=== PATIENT | female | born 1930 | race Caucasian/White ===

== ENCOUNTER 2017-01-05 08:47 | Inpatient (IN) | payer MEDICARE, OTHER ==
--- NOTE | 2017-01-05 09:00 | EDM.PDOC ---
ED HPI GENERAL MEDICAL PROBLEM - General Chief Complaint: Neuro Symptoms/Deficits Stated Complaint: [facility] Time Seen by Provider: 01/05/17 08:50 Source of Information: Reports: Patient, EMS, Correction Records History Limitations: Reports: No Limitations - History of Present Illness INITIAL COMMENTS - FREE TEXT/NARRATIVE: 86-year-old female presents to the ED with the apparently acute right-sided weakness and trouble speaking while she was seated at the dining room table. Noted to have difficulties feeding herself and she spilled her coffee and her juice. Last known well time is estimated at 0800 hrs. She just completed eating breakfast. Sugar on scene was 191 according to paramedics. Symptoms lasted between 5 and 6 minutes and then dissipated. She was having trouble with her speech expressive aphasia and right arm was weak and could not move it hardly. You're noticing about her leg as she was seated at the time and remain seating seated at the dining room table. She denies headache, nausea or vomiting no. There is no visual acuity changes. She feels pretty well back to normal. Denies any recent changes to her medications. Her blood pressure is normal at 143/72. NIH stroke scale was 9 out of 24. Decision made to proceed with TPA. Her total weight is 64 kg. She will therefore repeat receive a total dose of 58 mg of TPA with 6 mg given IV bolus and 52 mg over the next hour. Onset: Today Onset Date: 01/05/17 Onset Time: 08:20 Duration: Minutes: Location: Reports: Upper Extremity, Right Quality: Denies: Same as Previous Episode, Sharp, Stabbing, Throbbing Severity: Moderate Improves with: Reports: Other (It has resolved prior to coming to the ED.) Worsens with: Reports: None Context: Reports: Other (Had just finished eating her breakfast.). 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: Reports: Other (see below) (None.) - Related Data Allergies Allergy/AdvReac Type Severity Reaction Status Date / Time No Known Allergies Allergy Verified 01/05/17 17:17 Home Meds: Home Meds Budesonide/Formoterol [Symbicort 160-4.5 Mcg Inhaler] 2 puff IH BID 01/08/14 [ History] Lisinopril 10 mg PO DAILY #30 tablet 01/08/14 [Rx] Albuterol/Ipratropium [DuoNeb 3-0.5 MG/3 ML] 3 ml INH Q6H 07/24/14 [History] Latanoprost [Xalatan 0.005% Ophth Soln] 1 drop EYEBOTH BEDTIME 07/24/14 [History ] Montelukast Sodium [Singulair] 1 tab PO BEDTIME 07/24/14 [History] Multivitamin with Minerals [Multivitamins with Minerals] 1 tab PO DAILY [History] Multivitamins/Min/FA/Lut/Zeax [ICaps MV] 1 tab PO DAILY 07/24/14 [History] Levothyroxine [Synthroid] 88 mcg PO ACBREAKFAST 01/05/17 [History] Past Medical History HEENT History: Reports: Impaired Vision Cardiovascular History: Reports: Hypertension Respiratory History: Reports: Asthma - Past Surgical History GI Surgical History: Reports: Appendectomy Female Surgical History: Reports: Hysterectomy Social & Family History - Tobacco Use Smoking Status *Q: Never Smoker Second Hand Smoke Exposure: No - Alcohol Use Days Per Week of Alcohol Use: 0 - Recreational Drug Use Recreational Drug Use: No - Living Situation & Occupation Living situation: Reports: Occupation: Retired Social History Comment: Resides at [facility]. ED ROS GENERAL - Review of Systems Review Of Systems: See Below Constitutional: Denies: Fever, Chills, Malaise, Weakness, Fatigue, Decreased Appetite, Weight Loss HEENT: Reports: No Symptoms, Glasses Respiratory: Reports: No Symptoms Cardiovascular: Reports: No Symptoms, Blood Pressure Problem. Denies: Claudication, Dyspnea on Exertion, Edema, Lightheadedness (Well-controlled with medication), Orthopnea Endocrine: Reports: No Symptoms GI/Abdominal: Reports: No Symptoms : Reports: Incontinence Musculoskeletal: Reports: Back Pain (Mild stress and urge components.), Joint Pain Skin: Reports: No Symptoms (Knees hips shoulders and neck at times.) Neurological: Reports: No Symptoms Psychiatric: Reports: No Symptoms Hematologic/Lymphatic: Reports: No Symptoms Immunologic: Reports: No Symptoms ED EXAM, NEURO - Physical Exam Exam: See Below Exam Limited By: No Limitations General Appearance: Alert, WD/WN, Anxious, Mild Distress Eye Exam: Bilateral Eye: Normal Inspection, PERRL Throat/Mouth: Normal Inspection, Normal Lips, Normal Teeth, Normal Oropharynx, Other Head Exam: Atraumatic, Normocephalic (Uvula is in the midline) Neck: Normal Inspection, Supple, Non-Tender, Full Range of Motion, Carotid Bruit (Think carotid bruit present on the left side.). No: Lymphadenopathy (L) , Lymphadenopathy (R) Respiratory/Chest: No Respiratory Distress, Lungs Clear, Normal Breath Sounds, No Accessory Muscle Use Cardiovascular: Normal Peripheral Pulses, Regular Rate, Rhythm, No Edema, No Gallop, No Murmur GI/Abdominal: Normal Bowel Sounds, Soft, Non-Tender, No Organomegaly, No Distention, No Abnormal Bruit, No Mass Neurological: Alert, Normal Mood/Affect, Normal Dorsiflexion, CN II-XII Intact, Normal Plantar Flexion, Normal Reflexes, Oriented x 3, Abnormal Gait (With regard up to walk he could tell that the right leg was significantly weaker than the left and she had trouble walking without 1% age.), Other (Normal finger to nose no pronator drift.). No: Babinski DTR: 0: Achilles (R), Achilles (L), 2+: Patella (R), Patella (L), 3+: Bicep (R) , Bicep (L) Back Exam: Normal Inspection, Full Range of Motion, Other Extremities: Normal Inspection, Normal Range of Motion, Non-Tender, No Pedal Edema, Normal Capillary Refill (Mild kyphosis thoracic spine) Psychiatric: Normal Affect, Normal Mood Skin Exam: Warm, Dry, Intact, Normal Color, No Rash EKG INTERPRETATION EKG Date: 01/05/17 Time: 08:55 Rhythm: NSR Rate (Beats/Min): 79 [place]: Normal P-Wave: Present QRS: Other ST-T: Normal QT: Prolonged (Mildly prolonged) EKG Interpretation Comments: Essentially essentially normal ECG Course - Vital Signs Last Recorded V/S: Last Vital Signs Temp 36.6 C 01/05/17 18:00 Pulse 94 01/05/17 19:00 Resp 20 01/05/17 19:00 BP 146/67 H 01/05/17 19:00 Pulse Ox 94 L 01/05/17 19:00 - Orders/Labs/Meds Orders: Active Orders 24 hr Category Date Time Status Sodium Chloride 0.9% [Normal Saline] 1,000 ml Med 01/05/17 09:00 Active IV ASDIRECTED Medication Orders Acetaminophen (Tylenol) 650 mg PO Q4H PRN PRN Reason: Pain (Mild 1-3)/fever Hydrocodone Bitart/Acetaminophen ([place] 325-5 Mg) 1 tab PO Q4H PRN PRN Reason: Pain (moderate 4-6) Albuterol/Ipratropium (Duoneb 3.0-0.5 Mg/3 Ml) 3 ml NEB Q4H PRN PRN Reason: Shortness Of Breath/wheezing Albuterol/Ipratropium (Duoneb 3.0-0.5 Mg/3 Ml) 3 ml INH Q6HRRT CLEVE Bisacodyl (Dulcolax) 5 mg PO DAILY PRN PRN Reason: Constipation Budesonide/Formoterol Fumarate (Symbicort 160-4.5 Mcg) 0 gm INH BID CLEVE Docusate Sodium (Colace) 100 mg PO BID PRN PRN Reason: Constipation Hydromorphone HCl (Dilaudid) 0.25 mg IVPUSH Q2H PRN PRN Reason: Pain (severe 7-10) Sodium Chloride (Normal Saline) 1,000 mls @ 75 mls/hr IV ASDIRECTED CLEVE Last Admin: 01/05/17 09:20 Dose: 75 mls/hr Promethazine HCl 12.5 mg/ (Sodium Chloride) 50.5 mls @ 100 mls/hr IV Q6H PRN PRN Reason: Nausea/Vomiting Latanoprost (Xalatan 0.005% Ophth Soln) 0 ml EYEBOTH BEDTIME [facility] Levothyroxine Sodium (Synthroid) 88 mcg PO ACBREAKFAST CLEVE Lisinopril (Prinivil) 10 mg PO DAILY CLEVE Lorazepam (Ativan) 0.25 mg IV Q6H PRN PRN Reason: Anxiety Montelukast Sodium (Singulair) 10 mg PO BEDTIME CLEVE Ondansetron HCl (Zofran) 4 mg IV Q6H PRN PRN Reason: Nausea/Vomiting Senna/Docusate Sodium (Senna Plus) 1 tab PO BID PRN PRN Reason: Constipation Sodium Chloride (Saline Flush) 10 ml FLUSH ONETIME PRN PRN Reason: IV FLUSH Last Admin: 01/05/17 13:07 Dose: 10 ml Temazepam (Restoril) 7.5 mg PO BEDTIME PRN PRN Reason: Sleep Labs: Laboratory Tests 01/05/17 01/05/17 01/05/17 Range/Units 09:29 09:29 09:29 WBC 7.68 (3.98-10.04) K/mm3 RBC 4.24 (3.98-5.22) M/mm3 Hgb 13.4 (11.2-15.7) gm/L Hct 40.5 (34.1-44.9) % MCV 95.5 H (79.4-94.8) fl MCH 31.6 (25.6-32.2) pg MCHC 33.1 (32.2-35.5) g/dl RDW Std Deviation 45.8 (36.4-46.3) fL Plt Count 299 (182-369) K/mm3 MPV 11.2 (9.4-12.3) fl Neutrophils % (Manual) 60 (40-60) % Band Neutrophils % 0 (0-10) % Lymphocytes % (Manual) 36 (20-40) % Atypical Lymphs % 0 % Monocytes % (Manual) 1 L (2-10) % Eosinophils % (Manual) 3 (0.7-5.8) % Basophils % (Manual) 0 L (0.1-1.2) Platelet Estimate Adequate RBC Morph Comment Normal PT 10.5 (8.0-13.0) SECONDS INR 0.97 APTT (22-36) SECONDS Sodium 143 (136-145) mEq/L Potassium 4.2 (3.5-5.1) mEq/L Chloride 106 (98-107) mEq/L Carbon Dioxide 31 (21-32) mEq/L Anion Gap 10.2 (5-15) BUN 17 (7-18) mg/dL Creatinine 0.9 (0.55-1.02) mg/dL Est Cr Clr Drug Dosing 41.12 mL/min Estimated GFR (MDRD) 60 (>60) mL/min BUN/Creatinine Ratio 18.9 H (14-18) Glucose 121 H (83-115) mg/dL Calcium 9.3 (8.5-10.1) mg/dL Total Bilirubin 0.4 (0.2-1.0) mg/dL AST 21 (15-37) U/L ALT 23 (14-59) U/L Alkaline Phosphatase 64 (46-116) U/L Troponin I < 0.017 (0.00-0.056) ng/mL B-Natriuretic Peptide (0-100) pg/mL Total Protein 7.6 (6.4-8.2) g/dl Albumin 3.7 (3.4-5.0) g/dl Globulin 3.9 gm/dL Albumin/Globulin Ratio 1.0 (1-2) Urine Color (Yellow) Urine Appearance (Clear) Urine pH (5.0-8.0) Ur Specific [place] (1.005-1.030) Urine Protein (Negative) Urine Glucose (UA) (Negative) Urine Ketones (Negative) Urine Occult Blood (Negative) Urine Nitrite (Negative) Urine Bilirubin (Negative) Urine Urobilinogen (0.2-1.0) Ur Leukocyte Esterase (Negative) Urine RBC (0-5) /hpf Urine WBC (0-5) /hpf Ur Epithelial Cells (0-5) /hpf Urine Bacteria (FEW) /hpf Urine Mucus (FEW) /hpf 01/05/17 01/05/17 01/05/17 Range/Units 09:29 09:45 12:14 WBC (3.98-10.04) K/mm3 RBC (3.98-5.22) M/mm3 Hgb (11.2-15.7) gm/L Hct (34.1-44.9) % MCV (79.4-94.8) fl MCH (25.6-32.2) pg MCHC (32.2-35.5) g/dl RDW Std Deviation (36.4-46.3) fL Plt Count (182-369) K/mm3 MPV (9.4-12.3) fl Neutrophils % (Manual) (40-60) % Band Neutrophils % (0-10) % Lymphocytes % (Manual) (20-40) % Atypical Lymphs % % Monocytes % (Manual) (2-10) % Eosinophils % (Manual) (0.7-5.8) % Basophils % (Manual) (0.1-1.2) Platelet Estimate RBC Morph Comment PT (8.0-13.0) SECONDS INR APTT 22 (22-36) SECONDS Sodium (136-145) mEq/L Potassium (3.5-5.1) mEq/L Chloride (98-107) mEq/L Carbon Dioxide (21-32) mEq/L Anion Gap (5-15) BUN (7-18) mg/dL Creatinine (0.55-1.02) mg/dL Est Cr Clr Drug Dosing mL/min Estimated GFR (MDRD) (>60) mL/min BUN/Creatinine Ratio (14-18) Glucose (83-115) mg/dL Calcium (8.5-10.1) mg/dL Total Bilirubin (0.2-1.0) mg/dL AST (15-37) U/L ALT (14-59) U/L Alkaline Phosphatase (46-116) U/L Troponin I (0.00-0.056) ng/mL B-Natriuretic Peptide 144 H (0-100) pg/mL Total Protein (6.4-8.2) g/dl Albumin (3.4-5.0) g/dl Globulin gm/dL Albumin/Globulin Ratio (1-2) Urine Color Yellow (Yellow) Urine Appearance Clear (Clear) Urine pH 8.5 H (5.0-8.0) Ur Specific [place] 1.020 (1.005-1.030) Urine Protein Negative (Negative) Urine Glucose (UA) Negative (Negative) Urine Ketones Negative (Negative) Urine Occult Blood Negative (Negative) Urine Nitrite Negative (Negative) Urine Bilirubin Negative (Negative) Urine Urobilinogen 0.2 (0.2-1.0) Ur Leukocyte Esterase Negative (Negative) Urine RBC 0-5 (0-5) /hpf Urine WBC 0-5 (0-5) /hpf Ur Epithelial Cells 0-5 (0-5) /hpf Urine Bacteria Not seen (FEW) /hpf Urine Mucus Not seen (FEW) /hpf Meds: Medications Generic Name Dose Route Start Last Admin Trade Name Freq PRN Reason Stop Dose Admin Acetaminophen 650 mg 01/05/17 13:03 Tylenol PO Q4H PRN Pain (Mild 1-3)/fever Hydrocodone Bitart/Acetaminophen 1 tab 01/05/17 13:03 [place] 325-5 Mg PO Q4H PRN Pain (moderate 4-6) Albuterol/Ipratropium 3 ml 01/05/17 13:03 Duoneb 3.0-0.5 Mg/3 Ml NEB Q4H PRN Shortness Of Breath/wheezing Albuterol/Ipratropium 3 ml 01/05/17 21:00 Duoneb 3.0-0.5 Mg/3 Ml INH Q6HRRT CLEVE Bisacodyl 5 mg 01/05/17 13:03 Dulcolax PO DAILY PRN Constipation Budesonide/Formoterol Fumarate 0 gm 01/05/17 21:00 Symbicort 160-4.5 Mcg INH BID CLEVE Docusate Sodium 100 mg 01/05/17 13:03 Colace PO BID PRN Constipation Hydromorphone HCl 0.25 mg 01/05/17 13:03 Dilaudid IVPUSH Q2H PRN Pain (severe 7-10) Sodium Chloride 1,000 mls @ 75 mls/hr 01/05/17 09:00 01/05/17 09:20 Normal Saline IV 75 mls/hr ASDIRECTED CLEVE Administration Promethazine HCl 12.5 mg/ 50.5 mls @ 100 mls/hr 01/05/17 13:03 Sodium Chloride IV Q6H PRN Nausea/Vomiting Latanoprost 0 ml 01/05/17 21:00 Xalatan 0.005% Ophth Soln EYEBOTH BEDTIME CLEVE Levothyroxine Sodium 88 mcg 01/06/17 06:00 Synthroid PO ACBREAKFAST CLEVE Lisinopril 10 mg 01/06/17 09:00 Prinivil PO DAILY CLEVE Lorazepam 0.25 mg 01/05/17 13:03 Ativan IV Q6H PRN Anxiety Montelukast Sodium 10 mg 01/05/17 21:00 Singulair PO BEDTIME CLEVE Ondansetron HCl 4 mg 01/05/17 13:03 Zofran IV Q6H PRN Nausea/Vomiting Senna/Docusate Sodium 1 tab 01/05/17 13:03 Senna Plus PO BID PRN Constipation Sodium Chloride 10 ml 01/05/17 12:59 01/05/17 13:07 Saline Flush FLUSH 10 ml ONETIME PRN Administration IV FLUSH Temazepam 7.5 mg 01/05/17 21:00 Restoril PO BEDTIME PRN Sleep Discontinued Medications Generic Name Dose Route Start Last Admin Trade Name Renea PRN Reason Stop Dose Admin Alteplase, Recombinant 52 mg 01/05/17 10:01 01/05/17 10:21 Activase IV 01/05/17 10:02 52 mg .INFUSION ONE Administration Alteplase, Recombinant 6 mg 01/05/17 10:03 01/05/17 09:52 Activase IVPUSH 01/05/17 10:04 5.8 mg .BOLUS ONE Administration Sodium Chloride 100 mls @ 65 mls/hr 01/05/17 13:00 01/05/17 13:06 Normal Saline IV 65 mls/hr ASDIRECTED CLEVE Administration Iopamidol 100 ml 01/05/17 12:59 01/05/17 13:06 Isovue-370 (76%) IVPUSH 01/05/17 13:00 100 ml ONETIME ONE Administration Levothyroxine Sodium 100 mcg 01/06/17 09:00 Synthroid PO DAILY CLEVE Non-Formulary Medication 1 tab 01/05/17 13:09 Cetirizine PO ONCALL PRN Other Non-Formulary Medication 1 spray 01/05/17 21:00 Fluticasone Propionate NASBOTH BID CLEVE - Radiology Interpretation Free Text/Narrative:: 86-year-old female brought to the ED for evaluation of possible stroke. Apparently she was sitting at the breakfast table he just completed breakfast. She developed expressive aphasia from the sounds of things and right arm weakness. The symptoms lasted less than 56 minutes and her symptoms are gone at the time of presentation to the ED. On her bit slow and an inability to do finger to nose assessment as she seemed to be confused about what she is supposed to do. She can do rapid alternating movements with no problem. Heel-to- marcano was okay. Once CT is completed we'll get up walking and see how her gait is. - Re-Assessments/Exams Free Text/Narrative Re-Assessment/Exam: 01/05/17 09:16 CT of the brain is been completed. It shows age-appropriate degenerative changes with dilatation of the lateral ventricles and encephalomalacia of both the anterior and posterior horns. Small vessel ischemic changes present in both basal ganglia. There is an area of calcification in the deep parietal lobe on the left side. There is also 2 areas of calcification within the anterior aspect of the left cerebellar lobe. No acute bleeding is evident no midline shift no signs of mass effect. 01/05/17 09:40 With her son here it is quite apparent that she is exhibiting more problems with expressive aphasia. Also consultation with the nurse staff over at [facility] indicates that she was having trouble feeding herself this morning at 8:00 with knocking over her juice and spilling her coffee indicating right-sided weakness. To the table however without any difficulty. Far as we can ascertain her symptoms started around 0800 hrs this morning. Decision made to pursue TPA treatment. She is estimated to be 64 kg. She will therefore received a total dose of 58 mg of TPA with 5.8 mg given as initially and that the other 6 mg to be given initially and the other is 52 mg to follow IV infusion. She has no contraindications to TPA treatment at this time. 01/05/17 10:19 patient's symptoms seem to be much improved. Her speech pattern is now normal without an expressive aphasia I could find no weakness in her right hand as compared to the left. Chest x-ray reveals mild cardiomegaly and perhaps mild diffuse vascular congestion which may be due to magnification from portable technique. I will order a BNP. 01/05/17 10:33 labs reveal a normal white count at 7.68 with 60% neutrophils and no bands hemoglobin is 13.4 hematocrit is 40.5. Platelets are 299,000. Coags show a PT of 10.5 and INR 0.97 PTT is 22. Glucose is 121 EGFR is greater than 60 creatinine is 0.9. I will discuss the case with Dr. Yeung facility operations manager hospitalist as to whether he prefers her to be transferred out versus looking after her here. 01/05/17 11:00: Patient has completed the TPA infusion. There certainly is no improvement in her speech pattern her right upper extremity does not exhibit any pronator drift she able to hold it against gravity. 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 However getting her up she still has some right-sided weakness on the left on the right leg. She drifts towards the right side when she tries to walk and would not be able to walk alone on her own. Awaiting callback from and not facility operations manager hospitalist as to whether he will accept care versus send her to stroke unit. 01/05/17 11:38 patient and family have decided to go to the stroke unit for further assessment and evaluation. I will therefore call 1 call at [facility] in [place] and see if we can get her accepted by neurology. 01/05/17 12:01 patient is now changed her mind and after long lengthy discussion has elected to stay here in [place] for care. She'll have the investigations completed and see if there is any interventional things that can be done which can be done in [place] rather than traveling to [place] at this time. Therefore care will be notified and [facility] that she will not be coming and of course [employer] [employer] air flight will be canceled. 01/05/17 12:[address] angiogram of her neck vasculature since I can hear a left carotid bruit and see if there is a significant lesion that may be amenable to intervention Dr Eng --neurologist at [facility] in in [place] would be interested in looking at this and I will forted to his institution once it is completed. 01/05/17 14:01 CT angiogram of the neck has been completed. It shows minimal stenosis at the bifurcation of the internal/external carotid artery. There is an area of stenosis that is up in the intracranial portion of the middle cerebral artery and the left side. Awaiting the radiologist's report. She will be admitted to the intensive care unit under the care of Dr. Valentin. Departure - Departure Time of Disposition: 14:13 Disposition: DC/Tfer to Acute Hospital 02 Condition: Fair Clinical Impression: Cerebrovascular accident (CVA) Qualifiers: CVA mechanism: thrombosis Precerebral and cerebral artery: middle cerebral artery Laterality of affected vessel: left Qualified Code(s): I63.312 - Cerebral infarction due to thrombosis of left middle cerebral artery - Discharge Information - My Orders Last 24 Hours: My Active Orders 01/05/17 09:00 Sodium Chloride 0.9% [Normal Saline] 1,000 ml IV ASDIRECTED - Assessment/Plan Last 24 Hours: My Active Orders 01/05/17 09:00 Sodium Chloride 0.9% [Normal Saline] 1,000 ml IV ASDIRECTED
[2017-01-05] MEDS: Sodium Chloride 0.9% 1,000 ML IV SCH ×2 (09:20→23:49)
--- NOTE | 2017-01-05 09:30 | CT ---
Head CT Technique: Multiple axial sections through the brain were obtained. Intravenous contrast was not utilized. Comparison: Previous head CT exam of 09/15/15. Findings: Ventricles along with basal cisterns and sulci over the convexities are moderately prominent. Diminished density is noted within the periventricular white matter as well as basal ganglia compatible with small vessel ischemic demyelination change. Several stable lacunar infarcts noted within the basal ganglia and within the subcortical white matter. Minimal basal ganglia calcification is seen. No other abnormal parenchymal densities are seen. No evidence of intracranial hemorrhage. No midline shift or mass effect is seen. Atherosclerotic calcification is seen within the vertebral vessel and carotid siphon. Minimal mucosal thickening is noted within portions of the ethmoid sinuses. No acute calvarial abnormality is seen. Impression: 1. Senescent change as noted above. Findings appear to be stable from prior head CT exam. 2. No acute intracranial abnormality is identified. Diagnostic code #2
--- NOTE | 2017-01-05 12:09 | CR ---
Chest: Portable view of the chest was obtained. Comparison: Previous chest x-ray of 07/24/14. Heart size and mediastinum are within normal limits. Lung markings mildly increased which may represent slight pulmonary vascular congestion or bronchitis. Lungs otherwise are clear. Bony structures are grossly intact. Impression: 1. Slight increased lung markings possibly due to mild pulmonary vascular congestion or mild bronchitis. If patient has no correlating symptoms this may simply relate to accentuation from portable technique. 2. Portable chest x-ray is otherwise unremarkable. Diagnostic code #3
[2017-01-05] MEDS ORDERED: Iopamidol 755 Mg/ML 100 ML Bottle IVPUSH ONE (12:59)
[2017-01-05] MEDS ORDERED: Sodium Chloride 0.9% 10 ML Syringe FLUSH PRN (12:59)
[2017-01-05] MEDS ORDERED: Sodium Chloride 0.9% 100 ML IV SCH (13:00)
[2017-01-05] MEDS ORDERED: Docusate Sodium 100 MG Cap PO PRN (13:03)
[2017-01-05] MEDS ORDERED: Ondansetron 4 MG/2 ML SDV IV PRN (13:03)
[2017-01-05] MEDS ORDERED: Bisacodyl 5 MG Tab PO PRN (13:03)
[2017-01-05] MEDS ORDERED: Albuterol/Ipratropium 3.0-0.5 MG/3 ML Neb Soln NEB PRN (13:03)
[2017-01-05] MEDS ORDERED: Acetaminophen 325 MG Tab PO PRN (13:03)
[2017-01-05] MEDS ORDERED: LORazepam 2 MG/ML MDV IV PRN (13:03)
[2017-01-05] MEDS ORDERED: HYDROmorphone 0.5 MG/0.5 ML Syringe IVPUSH PRN (13:03)
[2017-01-05] MEDS ORDERED: Acetaminophen/HYDROcodone 325-5 MG Tab PO PRN (13:03)
[2017-01-05] MEDS ORDERED: Promethazine 12.5 MG in Sodium Chloride 0.9% 50 ML IV PRN (13:03)
--- NOTE | 2017-01-05 13:03 | PCM.HP ---
H&P History of Present Illness - General Date of Service: 01/05/17 Admit Problem/Dx: Admission Diagnosis/Problem Admission Diagnosis/Problem CVA, Cerebrovascular accident Source of Information: Patient, Family, RN Notes Reviewed, Significant Other History Limitations: Reports: Physical Impairment - History of Present Illness Initial Comments - Free Text/Narative: This is an 86 year old fairly healthy elderly white female with past medical history of hypertension, asthma and hypothyroidism who presents to the emergency department with acute right-sided weakness and difficulty speaking that took place at the dining room table. Her symptoms lasted between 5-6 minutes then slowly improved. Unfortunately, she was still having some difficulty finding words associated with right arm weakness. She denies any other neurologic complaints. At that time, she was found to have a blood sugar of 191 with a documented blood pressure of 143/70 millimeters per mercury. Patient reports no history of poorly controlled blood pressure or history of TIA/stroke in the past. She denies any history of paroxysmal atrial fibrillation. Her initial NIH score was 9 out of 24 on presentation to ED. Her initial workup in emergency department shows a CBC and chemistry that were both unremarkable. UA is negative for UTI. Head CT scan shows no acute intra- cranial abnormality. Neck CTA shows no significant atherosclerotic calcification. Patient received initial treatment with TPA in the emergency department. Options was offered for the patient to be transferred to [facility] for upper level of care. However after carefully discussing their options, she and her family decided to stay here in [place]. Family and patient aware with the limited resources we have here in [place]. She is DNR/DNI. - Related Data Allergies/Adverse Reactions: Allergies Allergy/AdvReac Type Severity Reaction Status Date / Time No Known Allergies Allergy Verified 01/05/17 17:17 Home Medications: Home Meds Budesonide/Formoterol [Symbicort 160-4.5 Mcg Inhaler] 2 puff IH BID 01/08/14 [ History] Lisinopril 10 mg PO DAILY #30 tablet 01/08/14 [Rx] Albuterol/Ipratropium [DuoNeb 3-0.5 MG/3 ML] 3 ml INH Q6H 07/24/14 [History] Latanoprost [Xalatan 0.005% Ophth Soln] 1 drop EYEBOTH BEDTIME 07/24/14 [History ] Montelukast Sodium [Singulair] 1 tab PO BEDTIME 07/24/14 [History] Multivitamin with Minerals [Multivitamins with Minerals] 1 tab PO DAILY [History] Multivitamins/Min/FA/Lut/Zeax [ICaps MV] 1 tab PO DAILY 07/24/14 [History] Levothyroxine [Synthroid] 88 mcg PO ACBREAKFAST 01/05/17 [History] Aspirin 81 mg PO BRK #30 tab.chew 01/06/17 [Rx] Past Medical History HEENT History: Reports: Impaired Vision Cardiovascular History: Reports: Hypertension Respiratory History: Reports: Asthma - Past Surgical History GI Surgical History: Reports: Appendectomy Female Surgical History: Reports: Hysterectomy Social & Family History - Tobacco Use Smoking Status *Q: Never Smoker Second Hand Smoke Exposure: No - Caffeine Use Caffeine Use: Reports: Coffee, Tea - Alcohol Use Days Per Week of Alcohol Use: 0 - Recreational Drug Use Recreational Drug Use: No - Living Situation & Occupation Living situation: Reports: Occupation: Retired H&P Review of Systems - Review of Systems: Review Of Systems: See Below General: Denies: Fever, Chills, Malaise, Weakness, Fatigue HEENT: Reports: No Symptoms Pulmonary: Denies: Shortness of Breath Cardiovascular: Denies: Chest Pain Gastrointestinal: Denies: Abdominal Pain, Nausea, Vomiting Genitourinary: Reports: No Symptoms Musculoskeletal: Reports: No Symptoms Skin: Reports: No Symptoms Psychiatric: Denies: Depression, Anxiety, Hallucinations Neurological: Reports: Trouble Speaking, Weakness (right sided), Change in Speech, Gait Disturbance, Other (Difficulty findings words). Denies: Confusion Hematologic/Lymphatic: Reports: No Symptoms Immunologic: Reports: No Symptoms Exam - Exam Exam: See Below - Vital Signs Vital Signs: Last Vital Signs Temp 36.4 C 01/05/17 11:30 Pulse 89 01/05/17 11:30 Resp 16 01/05/17 11:30 BP 166/85 H 01/05/17 11:30 Pulse Ox 95 01/05/17 11:30 Weight: 61.235 kg - Exam General: Alert, Oriented, Cooperative, Mild Distress HEENT: Conjunctiva Clear, EACs Clear, EOMI, Hearing Intact, Mucosa Moist & [place] , Nares Patent, Normal Nasal Septum, Posterior Pharynx Clear, Pupils Equal, Pupils Reactive, TMs Clear Neck: Supple, Trachea Midline Lungs: Clear to Auscultation, Normal Respiratory Effort Cardiovascular: Regular Rate, Regular Rhythm GI/Abdominal Exam: Normal Bowel Sounds, Soft, Non-Tender, No Organomegaly, No Distention, No Abnormal Bruit (Female) Exam: Deferred Rectal (Female) Exam: Deferred Back Exam: Normal Inspection, Decreased Range of Motion Extremities: Normal Inspection, Normal Range of Motion, Non-Tender, No Pedal Edema, Normal Capillary Refill Peripheral Pulses: 2+: Posterior Tibial (L), Posterior Tibial (R), Dorsalis Pedis (L), Dorsalis Pedis (R) Skin: Warm, Dry, Intact Neuro Extensive - Mental Status: Oriented x3, Normal Cognition, Memory Intact Neuro Extensive - Motor, Sensory, Reflexes: CN II-XII Intact, Abnormal Gait, Other (Mild right sided weakeness ). No: Dysarthria, Receptive Aphasia, Expressive Aphasia, Total Aphasia, Facial palsy (L), Facial Palsy (R), Pronator Drift (R), Pronator Drift (L), Babinski, Tremor Psychiatric: Alert, Normal Affect, Normal Mood - Patient Data Result Diagrams: 01/06/17 06:05 01/06/17 06:05 EKG INTERPRETATION EKG Date: 01/05/17 Time: 08:55 Rhythm: NSR Rate (Beats/Min): 79 [place]: Normal P-Wave: Present ST-T: Normal QT: Prolonged *Q Meaningful Use (ADM) - VTE *Q VTE Criteria *Q: - Stroke *Q Stroke Criteria *Q: - AMI *Q AMI Criteria *Q: Problem List Initiated/Reviewed/Updated: Yes Orders Last 24hrs: Active Orders 24 hr Category Date Time Status CTA Neck W & W/O Contrast [Ang Neck] [CT] Stat Exams 01/05/17 12:34 Ordered Sodium Chloride 0.9% [Normal Saline] 100 ml Med 01/05/17 13:00 Active IV ASDIRECTED Sodium Chloride 0.9% [Saline Flush] Med 01/05/17 12:59 Active 10 ml FLUSH ONETIME PRN Medication Orders Sodium Chloride (Normal Saline) 1,000 mls @ 75 mls/hr IV ASDIRECTED CLEVE Last Admin: 01/05/17 09:20 Dose: 75 mls/hr Sodium Chloride (Normal Saline) 100 mls @ 65 mls/hr IV ASDIRECTED [facility] Sodium Chloride (Saline Flush) 10 ml FLUSH ONETIME PRN PRN Reason: IV FLUSH Assessment/Plan Comment:: Assessment/Plan: 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 No evidence of intracranial hemorrhage. No midline shift or mass effect is seen. Atherosclerotic calcification is seen within the vertebrobasilar and carotid siphon. No acute calvarial abnormality is seen. - Family aware we are limited with resources and she could possibly get worse even here from complications of her TPA - NIH score was 9, now low after TPA - Received TPA in ED - EKG shows NSR - Recommendations: ASA, BS control, Permissive hypertension with SBP 180-190 mmHg, No need for MRI - Stroke Protocol: Aspiration precaution, No need for SUPERVISOR CAR AND YARD eval she passed bedside swallow eval, PT/OT and Routine Neuro check HTN - Permissive HTN - PRN Meds if SBP > 220 mmHg or DBP > 120 mmHg w/ Labetolol 10 mg IV for 1-2 mins may repeat dose q10 mins to a maximum dose of 300 mg. If no response, may use Nicardipine IV per protocol Carotid Atherosclerosis - Neck CTA: calcified plaque noted within both carotid bulbs and proximal and mid internal carotid arteries in both sides. Both vertebral arteries showed no significant stenosis. No significant stenosis seen within the common carotid arteries or internal carotid arteries or proximal external carotid arteries. - No Need for Carotid U/S - Lipid panel in am - Heart Heart Diet Plan: ICU to monitor after TPA transfusion Resume home meds PRN Medications Fall/Aspiration precautions PT/OT consult SW/CM for d/c planning Code status: 1
[2017-01-05] MEDS ORDERED: CETIRIZINE PO PRN (13:09)
--- NOTE | 2017-01-05 13:59 | CT ---
CT neck Technique: Multiple axial sections through the neck were obtained. Intravenous contrast was utilized. Multiple reconstructed MIP images were obtained. Findings: Calcified plaque is noted within both carotid bulbs and proximal and mid internal carotid arteries on both sides. There is also some calcification within the carotid siphon. No significant stenosis is seen within the common carotid arteries or internal carotid arteries or proximal external carotid arteries. Both vertebral arteries show no significant stenosis. Left vertebral artery is slightly dominant over the right side as submental note. Impression: 1. Atherosclerotic calcification as described above. No significant stenosis is seen as described above. Diagnostic code #2 CT angiogram of brain Technique: Intravenous contrast was given. Multiple MIP images were obtained centered to the agdaag[place] of [place]. Findings: Mild calcified plaque is seen within the carotid siphon. Carotid siphon appears widely patent with no stenosis. Anterior communicating and middle cerebral arteries appear to be patent. No significant stenosis is seen. Proximal posterior cerebral arteries are patent as well as the basilar artery. Impression: 1. Mild atherosclerotic calcification. No significant stenosis is seen within the major intercerebral arteries. Diagnostic code #2
[2017-01-05] MEDS: Albuterol/Ipratropium 3.0-0.5 MG/3 ML Neb Soln INH SCH (20:54)
[2017-01-05] MEDS: Formoterol/Mometasone 200-5 MCG 8.8 GM Inhaler IH SCH (20:54)
[2017-01-05] MEDS ORDERED: FLUTICASONE PROPIONATE NASBOTH SCH (21:00)
[2017-01-05] MEDS ORDERED: Montelukast 10 MG Tab PO SCH (21:00)
[2017-01-05] MEDS ORDERED: Temazepam 7.5 MG Cap PO PRN (21:00)
[2017-01-05] MEDS ORDERED: Budesonide/Formoterol 160-4.5 MCG/Puff 6 GM Inhaler INH SCH (21:00)
[2017-01-05] MEDS ORDERED: Latanoprost 0.005% Ophth Soln 2.5 ML Bottle EYEBOTH SCH (21:00)
[2017-01-06] MEDS: Albuterol/Ipratropium 3.0-0.5 MG/3 ML Neb Soln INH SCH ×3 (03:01→15:14)
[2017-01-06] MEDS ORDERED: Levothyroxine 88 MCG Tab PO SCH (06:00)
[2017-01-06] MEDS ORDERED: Magnesium Sulfate/Water 2 GM in Premix Bag 1 BAG IV ONE (08:38)
[2017-01-06] MEDS ORDERED: Levothyroxine 100 MCG Tab PO SCH (09:00)
[2017-01-06] MEDS ORDERED: Lisinopril 10 MG Tab PO SCH (09:00)
[2017-01-06] MEDS: Formoterol/Mometasone 200-5 MCG 8.8 GM Inhaler IH SCH (09:22)
--- NOTE | 2017-01-06 11:35 | PCM.PN ---
- General Info Date of Service: 01/06/17 Admission Dx/Problem (Free Text): Admission Diagnosis/Problem Admission Diagnosis/Problem CVA, Cerebrovascular accident Subjective Update: Follow Up Functional Status: Reports: Pain Controlled, Tolerating Diet, Ambulating. Denies: Urinating, New Symptoms - Review of Systems General: Denies: Fever, Weakness, Fatigue, Malaise, Chills HEENT: Reports: No Symptoms Pulmonary: Denies: Shortness of Breath Cardiovascular: Denies: Chest Pain, Dyspnea on Exertion, Lightheadedness Gastrointestinal: Denies: Abdominal Pain, Difficulty Swallowing, Nausea, Vomiting Genitourinary: Reports: No Symptoms Musculoskeletal: Reports: No Symptoms Skin: Denies: Cyanosis, Mottled Neurological: Denies: Confusion, Dizziness, Difficulty Walking, Weakness, Gait Disturbance Psychiatric: Denies: Depression, Anxiety, Agitation, Hallucinations Systems Review Comment:: No overnight or acute issues. She slept really well. She has no new complaints. She feels she is back to her baseline. Her Mg is slightly low at 1.7. - Patient Data Vitals - most recent: Last Vital Signs Temp 36.4 C 01/06/17 07:51 Pulse 81 01/06/17 05:57 Resp 16 01/06/17 07:51 BP 126/92 H 01/06/17 08:14 Pulse Ox 97 01/06/17 09:23 Weight - most recent: 63.049 kg I&O - last 24 hours: Intake & Output 01/05/17 01/06/17 01/06/17 22:59 06:59 14:59 Intake Total 990 1159 240 Output Total 1175 750 350 Balance -185 409 -110 Lab Results last 24 hrs: Laboratory Results - last 24 hr 01/05/17 01/06/17 01/06/17 Range/Units 16:43 06:05 06:05 WBC 8.02 (3.98-10.04) K/mm3 RBC 3.78 L (3.98-5.22) M/mm3 Hgb 11.9 (11.2-15.7) gm/L Hct 36.1 (34.1-44.9) % MCV 95.5 H (79.4-94.8) fl MCH 31.5 (25.6-32.2) pg MCHC 33.0 (32.2-35.5) g/dl RDW Std Deviation 45.5 (36.4-46.3) fL Plt Count 271 (182-369) K/mm3 MPV 10.7 (9.4-12.3) fl Neut % (Auto) 50.5 (34.0-71.1) % Lymph % (Auto) 33.9 (19.3-51.7) % [place] % (Auto) 12.6 H (4.7-12.5) % Eos % (Auto) 2.4 (0.7-5.8) Baso % (Auto) 0.4 (0.1-1.2) % Neut # (Auto) 4.05 (1.56-6.13) K/mm3 Lymph # (Auto) 2.72 (1.18-3.74) K/mm3 [place] # (Auto) 1.01 H (0.24-0.36) K/mm3 Eos # (Auto) 0.19 (0.04-0.36) K/mm3 Baso # (Auto) 0.03 (0.01-0.08) K/mm3 Sodium 139 (136-145) mEq/L Potassium 3.9 (3.5-5.1) mEq/L Chloride 106 (98-107) mEq/L Carbon Dioxide 24 (21-32) mEq/L Anion Gap 12.9 (5-15) BUN 12 (7-18) mg/dL Creatinine 0.7 (0.55-1.02) mg/dL Est Cr Clr Drug Dosing 52.87 mL/min Estimated GFR (MDRD) > 60 (>60) mL/min BUN/Creatinine Ratio 17.1 (14-18) Glucose 102 (83-115) mg/dL Calcium 8.1 L (8.5-10.1) mg/dL Magnesium 1.7 L (1.8-2.4) mg/dl Triglycerides 44 (<150) mg/dL Cholesterol 188 (<200) mg/dL LDL Cholesterol Direct 105 H* (<100) mg/dL HDL Cholesterol 71.0 H (40-59) mg/dL MRSA (PCR) Negative Med Orders - Current: Current Medications Acetaminophen (Tylenol) 650 mg PO Q4H PRN PRN Reason: Pain (Mild 1-3)/fever Hydrocodone Bitart/Acetaminophen (Dexter 325-5 Mg) 1 tab PO Q4H PRN PRN Reason: Pain (moderate 4-6) Albuterol/Ipratropium (Duoneb 3.0-0.5 Mg/3 Ml) 3 ml NEB Q4H PRN PRN Reason: Shortness Of Breath/wheezing Albuterol/Ipratropium (Duoneb 3.0-0.5 Mg/3 Ml) 3 ml INH Q6HRRT [facility] Last Admin: 01/06/17 09:22 Dose: 3 ml Bisacodyl (Dulcolax) 5 mg PO DAILY PRN PRN Reason: Constipation Docusate Sodium (Colace) 100 mg PO BID PRN PRN Reason: Constipation Hydromorphone HCl (Dilaudid) 0.25 mg IVPUSH Q2H PRN PRN Reason: Pain (severe 7-10) Sodium Chloride (Normal Saline) 1,000 mls @ 75 mls/hr IV ASDIRECTED [facility] Last Admin: 01/05/17 23:49 Dose: 75 mls/hr Promethazine HCl 12.5 mg/ (Sodium Chloride) 50.5 mls @ 100 mls/hr IV Q6H PRN PRN Reason: Nausea/Vomiting Latanoprost (Xalatan 0.005% Ophth Soln) 0 ml EYEBOTH BEDTIME [facility] Last Admin: 01/05/17 20:38 Dose: 1 drop Levothyroxine Sodium (Synthroid) 88 mcg PO ACBREAKFAST [facility] Last Admin: 01/06/17 05:19 Dose: 88 mcg Lisinopril (Prinivil) 10 mg PO DAILY [facility] Last Admin: 01/06/17 08:14 Dose: 10 mg Lorazepam (Ativan) 0.25 mg IV Q6H PRN PRN Reason: Anxiety Mometasone Furoate/Formoterol Fumar (Dulera 200-5 Mcg) 2 puff IH BID [facility] Last Admin: 01/06/17 09:22 Dose: 2 puff Montelukast Sodium (Singulair) 10 mg PO BEDTIME [facility] Last Admin: 01/05/17 20:38 Dose: 10 mg Ondansetron HCl (Zofran) 4 mg IV Q6H PRN PRN Reason: Nausea/Vomiting Senna/Docusate Sodium (Senna Plus) 1 tab PO BID PRN PRN Reason: Constipation Sodium Chloride (Saline Flush) 10 ml FLUSH ONETIME PRN PRN Reason: IV FLUSH Last Admin: 01/05/17 13:07 Dose: 10 ml Temazepam (Restoril) 7.5 mg PO BEDTIME PRN PRN Reason: Sleep Discontinued Medications Alteplase, Recombinant (Activase) 52 mg IV .INFUSION ONE Stop: 01/05/17 10:02 Last Admin: 01/05/17 10:21 Dose: 52 mg Alteplase, Recombinant (Activase) 6 mg IVPUSH .BOLUS ONE Stop: 01/05/17 10:04 Last Admin: 01/05/17 09:52 Dose: 5.8 mg Budesonide/Formoterol Fumarate (Symbicort 160-4.5 Mcg) 0 gm INH BID [facility] Sodium Chloride (Normal Saline) 100 mls @ 65 mls/hr IV ASDIRECTED [facility] Last Admin: 01/05/17 13:06 Dose: 65 mls/hr Magnesium Sulfate 2 gm/ Premix 50 mls @ 25 mls/hr IV ONETIME ONE Stop: 01/06/17 10:37 Last Admin: 01/06/17 09:00 Dose: 25 mls/hr Iopamidol (Isovue-370 (76%)) 100 ml IVPUSH ONETIME ONE Stop: 01/05/17 13:00 Last Admin: 01/05/17 13:06 Dose: 100 ml Levothyroxine Sodium (Synthroid) 100 mcg PO DAILY [facility] Non-Formulary Medication (Cetirizine) 1 tab PO ONCALL PRN PRN Reason: Other Non-Formulary Medication (Fluticasone Propionate) 1 spray NASBOTH BID [facility] - Exam General: alert, oriented, cooperative, no acute distress HEENT: Pupils equal, Pupils reactive, EOMI, Mucous membr. moist/pink Neck: supple, trachea midline, no JVD, no thyromegaly Lungs: Clear to Auscultation, Normal Respiratory Effort Cardiovascular: Regular Rate, Regular Rhythm GI/Abdominal Exam: Normal Bowel Sounds, Soft, Non-Tender, No Organomegaly, No Distention, No Abnormal Bruit, No Mass (Female) Exam: Deferred Back Exam: Normal Inspection, Decreased Range of Motion Extremities: Normal Inspection, Normal Range of Motion, Non-Tender, No Pedal Edema, Normal Capillary Refill Peripheral Pulses: 2+: Dorsalis Pedis (L), Dorsalis Pedis (R) Skin: warm, dry, intact Neurological: no new focal deficit Psy/Mental Status: alert, normal affect, normal mood - Problem List Review Problem List Initiated/Reviewed/Updated: Yes - My Orders Last 24 Hours: My Active Orders 01/05/17 13:03 Height and Weight [RC] 0400 Oxygen Therapy [RC] PRN Up With Assistance [RC] ASDIRECTED Up ad Staci [RC] ASDIRECTED VTE/DVT Education [RC] PER UNIT ROUTINE Vital Signs [RC] Q4HR Acetaminophen [Tylenol] 650 mg PO Q4H PRN Acetaminophen/HYDROcodone [Dexter 325-5 MG] 1 tab PO Q4H PRN Albuterol/Ipratropium [DuoNeb 3.0-0.5 MG/3 ML] 3 ml NEB Q4H PRN Bisacodyl [Dulcolax] 5 mg PO DAILY PRN Docusate Sodium [Colace] 100 mg PO BID PRN Docusate Sodium/Sennosides [Senna Plus] 1 tab PO BID PRN HYDROmorphone [Dilaudid] 0.25 mg IVPUSH Q2H PRN LORazepam [Ativan] 0.25 mg IV Q6H PRN Ondansetron [Zofran] 4 mg IV Q6H PRN Promethazine [Phenergan] 12.5 mg Sodium Chloride 0.9% [Normal Saline] 50 ml IV Q6H Resuscitation Status Routine 01/05/17 13:04 Cardiac Monitoring [RC] CONTINUOUS Intake and Output [RC] 04,16 01/05/17 13:05 RT Aerosol Therapy [RC] ASDIRECTED 01/05/17 13:08 Consult to Case Management [CONS] Routine Consult to Human Resource Adviser [CONS] Routine Consult to Spiritual Care [CONS] Routine OT Evaluation and Treatment [CONS] Routine PT Evaluation and Treatment [CONS] Routine 01/05/17 20:00 Precautions [COMM] Routine 01/05/17 20:21 Neuro Check [RC] BID Neurological Monitoring [RC] ASDIRECTED 01/05/17 21:00 Albuterol/Ipratropium [DuoNeb 3.0-0.5 MG/3 ML] 3 ml INH Q6HRRT Latanoprost [Xalatan 0.005% Ophth Soln] 0 ml EYEBOTH BEDTIME Mometasone/Formoterol [Dulera 200-5 MCG] 2 puff IH BID Montelukast [Singulair] 10 mg PO BEDTIME Temazepam [Restoril] 7.5 mg PO BEDTIME PRN 01/05/17 Dinner Heart Healthy Diet [DIET] 01/06/17 06:00 Levothyroxine [Synthroid] 88 mcg PO ACBREAKFAST 01/06/17 08:39 Admission Status [Patient Status] [ADT] Routine 01/06/17 09:00 Lisinopril [Prinivil] 10 mg PO DAILY 01/07/17 05:11 BASIC METABOLIC PANEL,BMP [CHEM] AM CBC WITH AUTO DIFF [HEME] AM - Plan Plan:: Assessment/Plan: S/p 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 No evidence of intracranial hemorrhage. No midline shift or mass effect is seen. Atherosclerotic calcification is seen within the vertebrobasilar and carotid siphon. No acute calvarial abnormality is seen. - Family aware we are limited with resources and she could possibly get worse even here from complications of her TPA - NIH score was 9, now low after TPA - Received TPA in ED - EKG shows NSR - Recommendations: ASA, BS control, Permissive hypertension with SBP 180-190 mmHg, No need for MRI - Stroke Protocol: Aspiration precaution, No need for AIR QUALITY TECHNICIAN eval she passed bedside swallow eval, PT/OT and Routine Neuro check - She feels at baseline HTN - Stable - Permissive HTN - PRN Meds if SBP > 220 mmHg or DBP > 120 mmHg w/ Labetolol 10 mg IV for 1-2 mins may repeat dose q10 mins to a maximum dose of 300 mg. If no response, may use Nicardipine IV per protocol Carotid Atherosclerosis - Neck CTA: calcified plaque noted within both carotid bulbs and proximal and mid internal carotid arteries in both sides. Both vertebral arteries showed no significant stenosis. No significant stenosis seen within the common carotid arteries or internal carotid arteries or proximal external carotid arteries. - No Need for Carotid U/S - Lipid panel: HLD is 71 and LDL is 105 (no need for statin, diet control and fish oil should be sufficient) - Heart Heart Diet Dyslipidemia - LDL 01 and HLD 71 - No need for statin - Diet control and fish oil should be sufficient Hypomagnesemia - Mg 1.7 - 2/2 inadequate intake - Will replete and monitor Plan: Patient is clinically stable Resume home meds PRN Medications Fall/Aspiration precautions Continue PT/OT SW/CM for d/c planning Code status: 1 Possible d/c today or tomorrow, family apprehensive about leaving too soon. They will talk this over with the rest of her children and will get back with me sometime this afternoon.
--- NOTE | 2017-01-06 14:28 | PCM.DCSUM1 ---
Discharge Summary - Hospital Course Brief History: This is an 86 year old fairly healthy elderly white female with past medical history of hypertension, asthma and hypothyroidism who presents to the emergency department with acute right-sided weakness associated with difficulty speaking and was admitted for CVA. 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 She received TPA in the emergency department and immediately her symptoms improved. Her EKG showed normal sinus rhythm. Head CT scan showed no acute abnormal finding but noted for several old lacunar infarct within the basal ganglia as well as atherosclerotic disease. Her lipid panel was unremarkable except for a slightly abnormal LDL level of 105. However, her vitals were fairly good during the admission. Overnight the patient had no acute issues. She remained stable during this admission and no complications noted post TPA treatment. Patient is now stable for discharge. She is to continue PT/OT and cognitive evaluation once she gets back to the assisted living facility. She was advised to take a low-dose aspirin and [id number] fish oil for maintenance medications. She is to resume all her home medications and continue with her daily activities without any restrictions. On the day of her discharge, her primary care physician was called and updated regarding her discharge care plans. Patient is to follow her primary care doctor in 1-2 weeks. Patient expressed understanding and agreement with the plans as discussed above. All questions were answered. - Patient Instructions Diet: Usual Diet as Tolerated Activity: As Tolerated Driving: Do Not Drive Showering/Bathing: May Shower Notify Provider of: Nausea and/or Vomiting Other/Special Instructions: - Please take all medications as directed. - We recommend you take low dose Aspirin po daily for cardioprotection/ cerebroprotection and also fish oil 1 tab po daily for dyslipidemia. - Continue routine daily activities w/o restrictions. - Call your doctor for any questions or concerns after discharge. - Follow up with your doctor in 1-2 weeks - Discharge Plan Prescriptions/Med Rec: Aspirin 81 mg PO BRK #30 tab.chew Home Medications: Home Meds Budesonide/Formoterol [Symbicort 160-4.5 Mcg Inhaler] 2 puff IH BID 01/08/14 [ History] Lisinopril 10 mg PO DAILY #30 tablet 01/08/14 [Rx] Albuterol/Ipratropium [DuoNeb 3-0.5 MG/3 ML] 3 ml INH Q6H 07/24/14 [History] Latanoprost [Xalatan 0.005% Ophth Soln] 1 drop EYEBOTH BEDTIME 07/24/14 [History ] Montelukast Sodium [Singulair] 1 tab PO BEDTIME 07/24/14 [History] Multivitamin with Minerals [Multivitamins with Minerals] 1 tab PO DAILY [History] Multivitamins/Min/FA/Lut/Zeax [ICaps MV] 1 tab PO DAILY 07/24/14 [History] Levothyroxine [Synthroid] 88 mcg PO ACBREAKFAST 01/05/17 [History] Aspirin 81 mg PO BRK #30 tab.chew 01/06/17 [Rx] Patient Handouts: Stroke Prevention, [id number] Referrals: Mehreen Go MD [Primary Care Provider] - 01/17/17 10:45 am - Discharge Summary/Plan Comment DC Time >30 min.: Yes (45 mins) Discharge Summary/Plan Comment: Discharge to Home - General Info Date of Service: 01/06/17 Admission Dx/Problem (Free Text: Admission Diagnosis/Problem Admission Diagnosis/Problem CVA, Cerebrovascular accident Subjective Update: Follow Up Functional Status: Reports: Pain Controlled, Tolerating Diet, Ambulating, Urinating. Denies: New Symptoms - Review of Systems General: Denies: Fever, Weakness, Fatigue, Malaise, Chills HEENT: Reports: No Symptoms Pulmonary: Denies: Shortness of Breath Cardiovascular: Denies: Chest Pain Gastrointestinal: Denies: Abdominal Pain, Nausea, Vomiting Genitourinary: Reports: No Symptoms Musculoskeletal: Reports: No Symptoms Skin: Reports: No Symptoms Neurological: Denies: Confusion, Dizziness, Headache, Numbness, Paresthesia, Seizure, Syncope, Tingling, Tremors, Trouble Speaking, Difficulty Walking, Weakness, Change in Speech, Gait Disturbance, Other Psychiatric: Denies: Depression, Anxiety, Agitation, Hallucinations Systems Review Comment: No overnight or acute issues. She is back to her baseline. She has no new complaints. - Patient Data Vitals - Most Recent: Last Vital Signs Temp 36.6 C 01/06/17 12:00 Pulse 87 01/06/17 09:19 Resp 19 01/06/17 12:00 BP 91/76 01/06/17 12:00 Pulse Ox 95 01/06/17 12:00 Weight - Most Recent: 63.049 kg I&O - Last 24 hours: Intake & Output 01/05/17 01/06/17 01/06/17 22:59 06:59 14:59 Intake Total 990 1159 2194 Output Total 1175 750 500 Balance -643 374 3873 Lab Results - Last 24 hrs: Laboratory Results - last 24 hr 01/05/17 01/06/17 01/06/17 Range/Units 16:43 06:05 06:05 WBC 8.02 (3.98-10.04) K/mm3 RBC 3.78 L (3.98-5.22) M/mm3 Hgb 11.9 (11.2-15.7) gm/L Hct 36.1 (34.1-44.9) % MCV 95.5 H (79.4-94.8) fl MCH 31.5 (25.6-32.2) pg MCHC 33.0 (32.2-35.5) g/dl RDW Std Deviation 45.5 (36.4-46.3) fL Plt Count 271 (182-369) K/mm3 MPV 10.7 (9.4-12.3) fl Neut % (Auto) 50.5 (34.0-71.1) % Lymph % (Auto) 33.9 (19.3-51.7) % [place] % (Auto) 12.6 H (4.7-12.5) % Eos % (Auto) 2.4 (0.7-5.8) Baso % (Auto) 0.4 (0.1-1.2) % Neut # (Auto) 4.05 (1.56-6.13) K/mm3 Lymph # (Auto) 2.72 (1.18-3.74) K/mm3 [place] # (Auto) 1.01 H (0.24-0.36) K/mm3 Eos # (Auto) 0.19 (0.04-0.36) K/mm3 Baso # (Auto) 0.03 (0.01-0.08) K/mm3 Sodium 139 (136-145) mEq/L Potassium 3.9 (3.5-5.1) mEq/L Chloride 106 (98-107) mEq/L Carbon Dioxide 24 (21-32) mEq/L Anion Gap 12.9 (5-15) BUN 12 (7-18) mg/dL Creatinine 0.7 (0.55-1.02) mg/dL Est Cr Clr Drug Dosing 52.87 mL/min Estimated GFR (MDRD) > 60 (>60) mL/min BUN/Creatinine Ratio 17.1 (14-18) Glucose 102 (83-115) mg/dL Calcium 8.1 L (8.5-10.1) mg/dL Magnesium 1.7 L (1.8-2.4) mg/dl Triglycerides 44 (<150) mg/dL Cholesterol 188 (<200) mg/dL LDL Cholesterol Direct 105 H* (<100) mg/dL HDL Cholesterol 71.0 H (40-59) mg/dL MRSA (PCR) Negative Med Orders - Current: Current Medications Acetaminophen (Tylenol) 650 mg PO Q4H PRN PRN Reason: Pain (Mild 1-3)/fever Hydrocodone Bitart/Acetaminophen ([place] 325-5 Mg) 1 tab PO Q4H PRN PRN Reason: Pain (moderate 4-6) Albuterol/Ipratropium (Duoneb 3.0-0.5 Mg/3 Ml) 3 ml NEB Q4H PRN PRN Reason: Shortness Of Breath/wheezing Albuterol/Ipratropium (Duoneb 3.0-0.5 Mg/3 Ml) 3 ml INH Q6HRRT [facility] Last Admin: 01/06/17 09:22 Dose: 3 ml Bisacodyl (Dulcolax) 5 mg PO DAILY PRN PRN Reason: Constipation Docusate Sodium (Colace) 100 mg PO BID PRN PRN Reason: Constipation Hydromorphone HCl (Dilaudid) 0.25 mg IVPUSH Q2H PRN PRN Reason: Pain (severe 7-10) Promethazine HCl 12.5 mg/ (Sodium Chloride) 50.5 mls @ 100 mls/hr IV Q6H PRN PRN Reason: Nausea/Vomiting Latanoprost (Xalatan 0.005% Ophth Soln) 0 ml EYEBOTH BEDTIME [facility] Last Admin: 01/05/17 20:38 Dose: 1 drop Levothyroxine Sodium (Synthroid) 88 mcg PO ACBREAKFAST [facility] Last Admin: 01/06/17 05:19 Dose: 88 mcg Lisinopril (Prinivil) 10 mg PO DAILY [facility] Last Admin: 01/06/17 08:14 Dose: 10 mg Lorazepam (Ativan) 0.25 mg IV Q6H PRN PRN Reason: Anxiety Mometasone Furoate/Formoterol Fumar (Dulera 200-5 Mcg) 2 puff IH BID [facility] Last Admin: 01/06/17 09:22 Dose: 2 puff Montelukast Sodium (Singulair) 10 mg PO BEDTIME [facility] Last Admin: 01/05/17 20:38 Dose: 10 mg Ondansetron HCl (Zofran) 4 mg IV Q6H PRN PRN Reason: Nausea/Vomiting Senna/Docusate Sodium (Senna Plus) 1 tab PO BID PRN PRN Reason: Constipation Sodium Chloride (Saline Flush) 10 ml FLUSH ONETIME PRN PRN Reason: IV FLUSH Last Admin: 01/05/17 13:07 Dose: 10 ml Temazepam (Restoril) 7.5 mg PO BEDTIME PRN PRN Reason: Sleep Discontinued Medications Alteplase, Recombinant (Activase) 52 mg IV .INFUSION ONE Stop: 01/05/17 10:02 Last Admin: 01/05/17 10:21 Dose: 52 mg Alteplase, Recombinant (Activase) 6 mg IVPUSH .BOLUS ONE Stop: 01/05/17 10:04 Last Admin: 01/05/17 09:52 Dose: 5.8 mg Budesonide/Formoterol Fumarate (Symbicort 160-4.5 Mcg) 0 gm INH BID [facility] Sodium Chloride (Normal Saline) 1,000 mls @ 75 mls/hr IV ASDIRECTED [facility] Last Admin: 01/05/17 23:49 Dose: 75 mls/hr Sodium Chloride (Normal Saline) 100 mls @ 65 mls/hr IV ASDIRECTED [facility] Last Admin: 01/05/17 13:06 Dose: 65 mls/hr Magnesium Sulfate 2 gm/ Premix 50 mls @ 25 mls/hr IV ONETIME ONE Stop: 01/06/17 10:37 Last Admin: 01/06/17 09:00 Dose: 25 mls/hr Iopamidol (Isovue-370 (76%)) 100 ml IVPUSH ONETIME ONE Stop: 01/05/17 13:00 Last Admin: 01/05/17 13:06 Dose: 100 ml Levothyroxine Sodium (Synthroid) 100 mcg PO DAILY [facility] Non-Formulary Medication (Cetirizine) 1 tab PO ONCALL PRN PRN Reason: Other Non-Formulary Medication (Fluticasone Propionate) 1 spray NASBOTH BID [facility] - Exam General: Reports: alert, oriented, cooperative, no acute distress HEENT: Reports: Pupils equal, Pupils reactive, EOMI, Mucous membr. moist/pink Neck: Reports: supple, trachea midline, no JVD, no thyromegaly Lungs: Reports: Clear to Auscultation, Normal Respiratory Effort, Rhonchi Cardiovascular: Reports: Regular Rate, Regular Rhythm GI/Abdominal Exam: Normal Bowel Sounds, Soft, Non-Tender, No Organomegaly, No Distention, No Abnormal Bruit, No Mass (Female) Exam: Deferred Rectal (Female) Exam: Deferred Back Exam: Reports: Normal Inspection, Decreased Range of Motion Extremities: Normal Inspection, Normal Range of Motion, Non-Tender, No Pedal Edema, Normal Capillary Refill Skin: Reports: warm, dry, intact Neurological: Reports: no new focal deficit Psy/Mental Status: Reports: alert, normal affect, normal mood *Q Meaningful Use (DIS) - VTE *Q VTE Criteria *Q: - Stroke *Q Stroke Criteria *Q: - AMI *Q AMI Criteria *Q:
[2017-01-06 17:10] VITALS: BP 152/60
== END 2017-01-06 16:45 | disposition home or self-care (01) | DRG 66 ==
LOC: JD.ED 08:47 → JD.ICU 12:18
PROVIDERS: ADMIT Internal Medicine; ATTEND Internal Medicine
DX: I63.312 Cerebral infarction due to thrombosis of left middle cerebral artery (principal); I10 Essential (primary) hypertension; E03.9 Hypothyroidism, unspecified; J45.909 Unspecified asthma, uncomplicated; E78.5 Hyperlipidemia, unspecified; E83.42 Hypomagnesemia; Z79.899 Other long term (current) drug therapy
CPT/HCPCS: 71010; 70450; 96361; 96365; 51702; 99285; 93005; 96376; 85025; 85730; 85610; 81001; 36415; 80053; 84484; 83880; J2997 ×2; J7040; 70498; 70498-26; 80048; 80061; 83735; 87641; 94640; 94640-76; 94664; 97110-GP; 97116-GP; 97162-GP; 97166-GO; 97530-GO; 97535-GO; A9270-GY; J3475; J7030; J7050; Q9967

== ENCOUNTER 2017-03-01 08:23 | Inpatient (IN) | payer MEDICARE, OTHER ==
[2017-03-01] MEDS ORDERED: Sodium Chloride 0.9% 10 ML Syringe FLUSH PRN (08:24)
--- NOTE | 2017-03-01 08:50 | CT ---
Head CT Technique: Multiple axial sections through the brain were obtained. Intravenous contrast was not utilized. Comparison: Previous head CT exam of 01/15/17 is available. Findings: Ventricles along with basal cisterns and sulci over the convexities are moderately prominent. Diminished density is noted within the periventricular and subcortical white matter as well as within portions of the basal ganglia compatible with small vessel ischemic demyelination change. No other abnormal parenchymal densities are seen. No evidence of intracranial hemorrhage. No midline shift or mass effect is seen. Atherosclerotic change is noted within the left vertebral vessel and within the carotid siphon. Bone window settings were reviewed which shows slight mucosal thickening within right maxillary sinus and small retention cyst within the left maxillary sinus. No acute calvarial abnormality is seen. Impression: 1. Minimal sinus findings which are felt to be incidental. 2. Senescent change as described above. 3. No acute intracranial abnormality is appreciated. Diagnostic code #2
[2017-03-01] MEDS ORDERED: Aspirin 81 MG Tab.Chew PO ONE (11:08)
--- NOTE | 2017-03-01 11:08 | EDM.PDOC ---
ED HPI GENERAL MEDICAL PROBLEM - General Chief Complaint: Neurological Problem Stated Complaint: [facility] Time Seen by Provider: 03/01/17 08:24 Source of Information: Reports: Patient, EMS, Family History Limitations: Reports: No Limitations - History of Present Illness INITIAL COMMENTS - FREE TEXT/NARRATIVE: The patient presents with slurred speech and right sided facial droop. The patient woke up at 630 and she was doing fine. She did not come down to breakfast so an aid went to check on her. That was at 0745. Her last time known well was then at 0747. They found her to be slurring her words and having right sided facial droop. EMS was called and they found the same but she quickly cleared up. She has no symptoms when she arrived here. She had a CVA back in December and had TPA here. She denies a fever, chills, cough, headache , chest pain, shortness of breath, abdominal pain, numbness or weakness. She has no dysuria. Onset: Sudden Duration: Hour(s): (0745 was last time known well) Location: Reports: Face Severity: Mild Improves with: Reports: None Worsens with: Reports: None Context: Reports: Activity (She was getting ready for the day) Associated Symptoms: Reports: No Other Symptoms Right Lower Back Pain Score (Numeric/FACES): 4 - Related Data Allergies Allergy/AdvReac Type Severity Reaction Status Date / Time No Known Allergies Allergy Verified 03/01/17 08:38 Home Meds: Home Meds Budesonide/Formoterol [Symbicort 160-4.5 Mcg Inhaler] 2 puff IH BID 01/08/14 [ History] Lisinopril 10 mg PO DAILY #30 tablet 01/08/14 [Rx] Albuterol/Ipratropium [DuoNeb 3-0.5 MG/3 ML] 3 ml INH Q6H 07/24/14 [History] Montelukast Sodium [Singulair] 1 tab PO BEDTIME 07/24/14 [History] Multivitamin with Minerals [Multivitamins with Minerals] 1 tab PO DAILY [History] Levothyroxine [Synthroid] 88 mcg PO ACBREAKFAST 01/05/17 [History] Albuterol Sulfate [Proair Hfa] 1 puff INH Q6H PRN 03/01/17 [History] Aspirin 81 mg PO BEDTIME 03/01/17 [History] Calcium Carbonate/Vitamin D3 [Calcium 1,000 + D3 Caplet] 1 tab PO DAILY [History] Cetirizine [ZyrTEC] 10 mg PO DAILY PRN 03/01/17 [History] Fluticasone Propionate [Flonase] 1 spray INH BID 03/01/17 [History] L.acidoph,Paracasei, B.lactis [Probiotic] 1 tab PO DAILY 03/01/17 [History] Magnesium Gluconate 500 mg PO BID 03/01/17 [History] [place]-3 Fatty Acids [[place]-3] 1,200 mg PO DAILY 03/01/17 [History] Ranitidine HCl [Zantac 75] 75 mg PO BID PRN 03/01/17 [History] Travoprost [Travatan Z] 1 drop EYEBOTH BEDTIME 03/01/17 [History] Past Medical History HEENT History: Reports: Impaired Vision Cardiovascular History: Reports: Hypertension Respiratory History: Reports: Asthma [employer] History: Reports: - Past Surgical History GI Surgical History: Reports: Appendectomy Female Surgical History: Reports: Hysterectomy Social & Family History - Family History Family Medical History: Noncontributory - Tobacco Use Smoking Status *Q: Never Smoker Second Hand Smoke Exposure: No - Caffeine Use Caffeine Use: Reports: Coffee - Alcohol Use Days Per Week of Alcohol Use: 0 - Recreational Drug Use Recreational Drug Use: No - Living Situation & Occupation Living situation: Reports: Occupation: Retired ED ROS GENERAL - Review of Systems Review Of Systems: See Below Constitutional: Reports: No Symptoms HEENT: Reports: No Symptoms Respiratory: Reports: No Symptoms Cardiovascular: Reports: No Symptoms Endocrine: Reports: No Symptoms GI/Abdominal: Reports: No Symptoms : Reports: No Symptoms Musculoskeletal: Reports: No Symptoms Skin: Reports: No Symptoms Neurological: Reports: Other (Right sided facial weakness and slurred speech) ED EXAM, NEURO - Physical Exam Exam: See Below Exam Limited By: No Limitations General Appearance: Alert, No Apparent Distress Ears: Normal External Exam Nose: Normal Inspection Head Exam: Atraumatic, Normocephalic Neck: Normal Inspection Respiratory/Chest: No Respiratory Distress, Lungs Clear, Normal Breath Sounds Cardiovascular: Regular Rate, Rhythm, No Edema, No Murmur GI/Abdominal: Soft, Non-Tender, No Organomegaly, No Mass Neurological: Alert, No Motor/Sensory Deficits, Oriented x 3 Back Exam: Normal Inspection Extremities: Normal Inspection Skin Exam: Warm, Dry Course - Vital Signs Last Recorded V/S: Last Vital Signs Temp 96.7 F 03/01/17 08:32 Pulse 87 03/01/17 08:32 Resp 16 03/01/17 08:32 BP 165/68 H 03/01/17 08:32 Pulse Ox 93 L 03/01/17 08:32 - Orders/Labs/Meds Orders: Active Orders 24 hr Category Date Time Status Cardiac Monitoring [RC] . DIRECTED Care 03/01/17 08:24 Active EKG Documentation Completion [RC] STAT Care 03/01/17 08:25 Active Peripheral IV Care [RC] . DIRECTED Care 03/01/17 08:25 Active Sodium Chloride 0.9% [Saline Flush] Med 03/01/17 08:24 Active 10 ml FLUSH ASDIRECTED PRN Peripheral IV Insertion Adult [OM.PC] Stat Oth 03/01/17 08:24 Ordered Medication Orders Sodium Chloride (Saline Flush) 10 ml FLUSH ASDIRECTED PRN PRN Reason: Keep Vein Open Last Admin: 03/01/17 08:45 Dose: 10 ml Labs: Laboratory Tests 03/01/17 03/01/17 03/01/17 Range/Units 09:00 09:00 09:00 WBC 7.79 (3.98-10.04) K/mm3 RBC 4.03 (3.98-5.22) M/mm3 Hgb 12.7 (11.2-15.7) gm/L Hct 38.3 (34.1-44.9) % MCV 95.0 H (79.4-94.8) fl MCH 31.5 (25.6-32.2) pg MCHC 33.2 (32.2-35.5) g/dl RDW Std Deviation 47.2 H (36.4-46.3) fL Plt Count 320 (182-369) K/mm3 MPV 10.0 (9.4-12.3) fl Neut % (Auto) 66.4 (34.0-71.1) % Lymph % (Auto) 21.3 (19.3-51.7) % [place] % (Auto) 9.9 (4.7-12.5) % Eos % (Auto) 1.5 (0.7-5.8) Baso % (Auto) 0.6 (0.1-1.2) % Neut # (Auto) 5.17 (1.56-6.13) K/mm3 Lymph # (Auto) 1.66 (1.18-3.74) K/mm3 [place] # (Auto) 0.77 H (0.24-0.36) K/mm3 Eos # (Auto) 0.12 (0.04-0.36) K/mm3 Baso # (Auto) 0.05 (0.01-0.08) K/mm3 PT 10.3 (8.0-13.0) SECONDS INR 0.95 APTT 28 (22-36) SECONDS Sodium 137 (136-145) mEq/L Potassium 3.9 (3.5-5.1) mEq/L Chloride 102 (98-107) mEq/L Carbon Dioxide 29 (21-32) mEq/L Anion Gap 9.9 (5-15) BUN 14 (7-18) mg/dL Creatinine 0.9 (0.55-1.02) mg/dL Est Cr Clr Drug Dosing 41.12 mL/min Estimated GFR (MDRD) 60 (>60) mL/min BUN/Creatinine Ratio 15.6 (14-18) Glucose 122 H (83-115) mg/dL Calcium 9.3 (8.5-10.1) mg/dL Total Bilirubin 0.5 (0.2-1.0) mg/dL AST 20 (15-37) U/L ALT 23 (14-59) U/L Alkaline Phosphatase 62 (46-116) U/L Troponin I < 0.017 (0.00-0.056) ng/mL Total Protein 6.9 (6.4-8.2) g/dl Albumin 3.4 (3.4-5.0) g/dl Globulin 3.5 gm/dL Albumin/Globulin Ratio 1.0 (1-2) Meds: Medications Generic Name Dose Route Start Last Admin Trade Name Freq PRN Reason Stop Dose Admin Sodium Chloride 10 ml 03/01/17 08:24 03/01/17 08:45 Saline Flush FLUSH 10 ml ASDIRECTED PRN Administration Keep Vein Open Discontinued Medications Generic Name Dose Route Start Last Admin Trade Name Renea PRN Reason Stop Dose Admin Aspirin 324 mg 03/01/17 11:08 Aspirin PO 03/01/17 11:09 ONETIME ONE - Re-Assessments/Exams Free Text/Narrative Re-Assessment/Exam: 03/01/17 11:09 A stroke alert was called and I went right into the room. Her last time known well was 0745. She had resolved her symptoms when she got here. Her CT shows minimal sinus findings which are felt to be incidental, senescent change as described above, no acute intracranial abnormality is appreciated. Her EKG shows a NSR with no acute changes. Her CBC and CMP look good. Her troponin is negative. I feel she needs to be admitted. I ordered some aspirin. I called Dr Delgado and he agreed to the admission. 03/01/17 11:15 Family came after I initially saw the patient and they thought she may still have some slurring of her speech and some facial droop. I feel she has cleared but they know her way better then me. Departure - Departure Time of Disposition: 11:15 Disposition: Admitted As Inpatient 67 Condition: Fair Clinical Impression: TIA (transient ischemic attack) Qualifiers: Transient cerebral ischemia type: unspecified Qualified Code(s): G45.9 - Transient cerebral ischemic attack, unspecified - Discharge Information Referrals: Mehreen Go MD [Primary Care Provider] - Forms: ED Department Discharge - My Orders Last 24 Hours: My Active Orders 03/01/17 08:24 Cardiac Monitoring [RC] . DIRECTED Sodium Chloride 0.9% [Saline Flush] 10 ml FLUSH ASDIRECTED PRN Peripheral IV Insertion Adult [OM.PC] Stat 03/01/17 08:25 EKG Documentation Completion [RC] STAT Peripheral IV Care [RC] . DIRECTED - Assessment/Plan Last 24 Hours: My Active Orders 03/01/17 08:24 Cardiac Monitoring [RC] . DIRECTED Sodium Chloride 0.9% [Saline Flush] 10 ml FLUSH ASDIRECTED PRN Peripheral IV Insertion Adult [OM.PC] Stat 03/01/17 08:25 EKG Documentation Completion [RC] STAT Peripheral IV Care [RC] . DIRECTED
--- NOTE | 2017-03-01 12:15 | PCM.HP ---
H&P History of Present Illness - General Date of Service: 03/01/17 Admit Problem/Dx: TIA Source of Information: Patient, Family, Old Records, Provider, RN Notes Reviewed History Limitations: Reports: No Limitations - History of Present Illness Initial Comments - Free Text/Narative: This is an 86-year-old elderly white female with past medical history of impaired vision, hypertension, hyperlipidemia, carotid atherosclerosis and asthma who comes in to the emergency department with complaints of slurred speech and right-sided facial droop that started early this morning. Her last known well was about past 729. Her family found patient with slurred words and right-sided facial droop. She denies any other neurologic deficits. Patient carries a history of stroke back in December wherein she received TPA and was sent to rehabilitation for further deconditioning. Patient denies any other symptoms. Her initial workup in the emergency department shows an unremarkable CBC and chemistry. Her UDS is negative for UTI. Her head CT scan report reads no acute intra-cranial abnormality. Her initial EKG reads sinus arrhythmia with PVCs. At the time of my examination, patient appears to be back at her prior level of functioning. She is being admitted for medical management of TIA. She is CPR only. Right Lower Back Pain Score (Numeric/FACES): 4 - Related Data Allergies/Adverse Reactions: Allergies Allergy/AdvReac Type Severity Reaction Status Date / Time No Known Allergies Allergy Verified 03/01/17 08:38 Home Medications: Home Meds Budesonide/Formoterol [Symbicort 160-4.5 Mcg Inhaler] 2 puff IH BID 01/08/14 [ History] Lisinopril 10 mg PO DAILY #30 tablet 01/08/14 [Rx] Albuterol/Ipratropium [DuoNeb 3-0.5 MG/3 ML] 3 ml INH Q6H 07/24/14 [History] Montelukast Sodium [Singulair] 10 mg PO BEDTIME 07/24/14 [History] Multivitamin with Minerals [Multivitamins with Minerals] 1 tab PO DAILY [History] Levothyroxine [Synthroid] 88 mcg PO ACBREAKFAST 01/05/17 [History] Albuterol Sulfate [Proair Hfa] 1 puff INH Q6H PRN 03/01/17 [History] Calcium Carbonate/Vitamin D3 [Calcium 1,000 + D3 Caplet] 1 tab PO DAILY [History] Cetirizine [ZyrTEC] 10 mg PO DAILY PRN 03/01/17 [History] Fluticasone Propionate [Flonase] 1 spray INH BID PRN 03/01/17 [History] L.acidoph,Paracasei, B.lactis [Probiotic] 1 tab PO DAILY 03/01/17 [History] Magnesium Oxide [Magnesium] 500 mg PO BID 03/01/17 [History] [place]-3 Fatty Acids [[place]-3] 1,200 mg PO DAILY 03/01/17 [History] Ranitidine HCl [Zantac 75] 150 mg PO DAILY 03/01/17 [History] Travoprost [Travatan Z] 1 drop EYEBOTH BEDTIME 03/01/17 [History] Aspirin [Adult Low Dose Aspirin EC] 162 mg PO BEDTIME #30 tablet. 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: - Past Surgical History GI Surgical History: Reports: Appendectomy Female Surgical History: Reports: Hysterectomy Social & Family History - Family History Family Medical History: Noncontributory - Tobacco Use Smoking Status *Q: Never Smoker Second Hand Smoke Exposure: No - Caffeine Use Caffeine Use: Reports: Coffee - Alcohol Use Days Per Week of Alcohol Use: 0 - Recreational Drug Use Recreational Drug Use: No - Living Situation & Occupation Living situation: Reports: Occupation: Retired H&P Review of Systems - Review of Systems: Review Of Systems: See Below General: Denies: Fever, Chills, Malaise, Weakness, Fatigue, Decreased Appetite HEENT: Reports: No Symptoms. Denies: Dysphasia Pulmonary: Denies: Shortness of Breath Cardiovascular: Denies: Chest Pain, Palpitations, Dyspnea on Exertion, Lightheadedness, Blood Pressure Problem Gastrointestinal: Denies: Abdominal Pain, Constipation, Diarrhea, Decreased Appetite, Difficulty Swallowing, Nausea, Vomiting Genitourinary: Reports: No Symptoms Musculoskeletal: Reports: No Symptoms Skin: Denies: Cyanosis, Jaundice, Mottled, Pallor, Diaphoresis Psychiatric: Denies: Confusion, Depression, Anxiety, Agitation, Hallucinations, Suicidal Ideation Neurological: Reports: Trouble Speaking, Change in Speech, Other (right facial droop). Denies: Confusion, Difficulty Walking, Weakness, Gait Disturbance Hematologic/Lymphatic: Reports: No Symptoms Immunologic: Reports: No Symptoms Exam - Exam Exam: See Below - Vital Signs Vital Signs: Last Vital Signs Temp 35.9 C 03/01/17 08:32 Pulse 87 03/01/17 08:32 Resp 16 03/01/17 08:32 BP 165/68 H 03/01/17 08:32 Pulse Ox 93 L 03/01/17 08:32 Weight: 58.967 kg - Exam General: Alert, Oriented, Cooperative, Mild Distress HEENT: Conjunctiva Clear, EACs Clear, EOMI, Hearing Intact, Mucosa Moist & [place] , Nares Patent, Normal Nasal Septum, Posterior Pharynx Clear, Pupils Equal, Pupils Reactive, TMs Clear Neck: Supple, Trachea Midline, +2 Carotid Pulse wo Bruit, Full Range of Motion Lungs: Clear to Auscultation, Normal Respiratory Effort Cardiovascular: Regular Rate, Regular Rhythm GI/Abdominal Exam: Normal Bowel Sounds, Soft, Non-Tender, No Organomegaly, No Distention, No Abnormal Bruit, No Mass (Female) Exam: Deferred Rectal (Female) Exam: Deferred Back Exam: Normal Inspection, Decreased Range of Motion Extremities: Normal Inspection, Normal Range of Motion, Non-Tender, No Pedal Edema, Normal Capillary Refill Peripheral Pulses: 2+: Posterior Tibial (L), Posterior Tibial (R), Dorsalis Pedis (L), Dorsalis Pedis (R) Skin: Warm, Dry, Intact Neuro Extensive - Mental Status: Oriented x3, Normal Cognition, Memory Intact Neuro Extensive - Motor, Sensory, Reflexes: CN II-XII Intact, Normal Gait DTR: 2+: Achilles (L), Achilles (R) Psychiatric: Alert, Normal Affect, Normal Mood - Patient Data Result Diagrams: 03/02/17 05:46 03/02/17 05:46 *Q Meaningful Use (ADM) - VTE *Q VTE Criteria *Q: - Stroke *Q Stroke Criteria *Q: - AMI *Q AMI Criteria *Q: Problem List Initiated/Reviewed/Updated: Yes Orders Last 24hrs: Medication Orders Sodium Chloride (Saline Flush) 10 ml FLUSH ASDIRECTED PRN PRN Reason: Keep Vein Open Last Admin: 03/01/17 08:45 Dose: 10 ml Assessment/Plan Comment:: Assessment/Plan: Acute: TIA - Risk Factors: Old Stroke, HTN, HLD, Carotid Atherosclerosis - Head CT scan shows no acute abnormal findings - Neurologic symptoms have now completely resolved - She is now at her baseline function - Continue secondary prevention - PT/OT/ MANAGER LICENSING if available - Bedside swallowing study if MANAGER LICENSING could not get in to see her soon - Continue ASA and AHA diet - Monitor BPs - Recommended no need for additional invasive testing as her presenting deficits have resolved completely-family agreed Chronic: Impaired Vision HTN HLD Carotid Atherosclerosis Asthma Plan: Admit to Med-Surg Routine AM Labs Resume Home Medications PT/OT/MANAGER LICENSING consult SW/CM for d/c planning Code status: CPR only D/c in AM- I felt she did not need to come in
[2017-03-01] MEDS ORDERED: Bisacodyl 5 MG Tab PO PRN (14:57)
[2017-03-01] MEDS ORDERED: Ondansetron 4 MG/2 ML SDV IV PRN (14:57)
[2017-03-01] MEDS ORDERED: Temazepam 7.5 MG Cap PO PRN (14:57)
[2017-03-01] MEDS ORDERED: LORazepam 2 MG/ML MDV IV PRN (14:57)
[2017-03-01] MEDS ORDERED: Albuterol/Ipratropium 3.0-0.5 MG/3 ML Neb Soln NEB PRN (14:57)
[2017-03-01] MEDS ORDERED: HYDROmorphone 0.5 MG/0.5 ML Syringe IVPUSH PRN (14:57)
[2017-03-01] MEDS ORDERED: Docusate Sodium 100 MG Cap PO PRN (14:57)
[2017-03-01] MEDS ORDERED: Acetaminophen/HYDROcodone 325-5 MG Tab PO PRN (14:57)
[2017-03-01] MEDS ORDERED: Promethazine 12.5 MG in Sodium Chloride 0.9% 50 ML IV PRN (14:57)
[2017-03-01] MEDS ORDERED: Polyethylene Glycol 3350 Powder 17 GM Packet PO PRN (14:57)
[2017-03-01] MEDS ORDERED: Loratadine 10 MG Tab PO PRN (15:00)
[2017-03-01] MEDS ORDERED: Albuterol 6.7 GM Inhaler INH PRN (15:00)
[2017-03-01] MEDS: Albuterol/Ipratropium 3.0-0.5 MG/3 ML Neb Soln INH SCH ×2 (15:19→20:27)
[2017-03-01] MEDS: Formoterol/Mometasone 200-5 MCG 8.8 GM Inhaler IH SCH (20:27)
[2017-03-01] MEDS ORDERED: Montelukast 10 MG Tab PO SCH (21:00)
[2017-03-01] MEDS ORDERED: Latanoprost 0.005% Ophth Soln 2.5 ML Bottle EYEBOTH SCH (21:00)
[2017-03-01] MEDS ORDERED: Aspirin 81 MG Tab.Chew PO SCH (21:00)
[2017-03-01] MEDS: Magnesium Oxide 400 MG Tab PO SCH (21:05)
[2017-03-01] MEDS: Acetaminophen 325 MG Tab PO PRN (21:15)
[2017-03-02] MEDS ORDERED: Levothyroxine 88 MCG Tab PO SCH (06:00)
[2017-03-02] MEDS: Albuterol/Ipratropium 3.0-0.5 MG/3 ML Neb Soln INH SCH ×2 (06:09→08:53)
[2017-03-02] MEDS: Acetaminophen 325 MG Tab PO PRN (06:58)
--- NOTE | 2017-03-02 08:10 | PCM.DCSUM1 ---
Discharge Summary - Hospital Course Brief History: This is an 86-year-old elderly white female with past medical history of impaired vision, hypertension, hyperlipidemia, carotid atherosclerosis and asthma who comes in to the emergency department with complaints of slurred speech and right-sided facial droop and was admitted for medical management of TIA. - Discharge Data Discharge Date: 03/02/17 Discharge Disposition: Home, Self-Care 01 Condition: Good - Discharge Diagnosis/Problem(s) (1) TIA (transient ischemic attack) SNOMED Code(s): 201339354, [id number] ICD Code: G45.9 - TRANSIENT CEREBRAL ISCHEMIC ATTACK, UNSPECIFIED Status: Acute Qualifiers: Transient cerebral ischemia type: unspecified Qualified Code(s): G45.9 - Transient cerebral ischemic attack, unspecified - Patient Summary/Data Operative Procedure(s) Performed: None Complications: None Consults: Consultations 03/01/17 14:48 Consult to Speech Language Pathology [PERSONAL HEALTH COACH Evaluation and Treatment] [CONS] Routine 03/01/17 14:57 Consult to Case Management [CONS] Routine Consult to Net Web Developer [CONS] Routine Consult to Spiritual Care [CONS] Routine OT Evaluation and Treatment [CONS] Routine PT Evaluation and Treatment [CONS] Routine Recommended Follow-up Testing/Procedures: None Hospital Course: Patient was primarily admitted for medical treatment of TIA. She presented to the emergency department with complaints of facial droop and slurred speech. However both symptoms have resolved while she was in ED. Her head CT scan showed no acute intra-cranial abnormality. Her family did not want any further testing related to her TIA. Patient did well overnight and is now ready for discharge. She is back at her prior level of functioning. Her hospital course was uncomplicated. Patient was advised to continue taking her aspirin, 2 pills of low-dose daily and monitoring her blood pressure. She is to resume all her daily home routine regimen without any restrictions. Patient was further advised to follow-up with her primary care as needed. The patient expressed understanding and in agreement with the plans as discussed above. All questions were answered. - Patient Instructions Diet: Heart Healthy Diet, Usual Diet as Tolerated Activity: As Tolerated Driving: Do Not Drive Showering/Bathing: May Shower Notify Provider of: Fever, Increased Pain, Nausea and/or Vomiting Other/Special Instructions: - Please resume all home medications. - Continue daily routine activities. - Call or follow up with your family doctor if you have any further questions or concerns after discharge - Discharge Plan Prescriptions/Med Rec: Aspirin [Adult Low Dose Aspirin EC] 162 mg PO BEDTIME #30 tablet. Home Medications: Home Meds Budesonide/Formoterol [Symbicort 160-4.5 Mcg Inhaler] 2 puff IH BID 01/08/14 [ History] Lisinopril 10 mg PO DAILY #30 tablet 01/08/14 [Rx] Albuterol/Ipratropium [DuoNeb 3-0.5 MG/3 ML] 3 ml INH Q6H 07/24/14 [History] Montelukast Sodium [Singulair] 10 mg PO BEDTIME 07/24/14 [History] Multivitamin with Minerals [Multivitamins with Minerals] 1 tab PO DAILY [History] Levothyroxine [Synthroid] 88 mcg PO ACBREAKFAST 01/05/17 [History] Albuterol Sulfate [Proair Hfa] 1 puff INH Q6H PRN 03/01/17 [History] Calcium Carbonate/Vitamin D3 [Calcium 1,000 + D3 Caplet] 1 tab PO DAILY [History] Cetirizine [ZyrTEC] 10 mg PO DAILY PRN 03/01/17 [History] Fluticasone Propionate [Flonase] 1 spray INH BID PRN 03/01/17 [History] L.acidoph,Paracasei, B.lactis [Probiotic] 1 tab PO DAILY 03/01/17 [History] Magnesium Oxide [Magnesium] 500 mg PO BID 03/01/17 [History] [place]-3 Fatty Acids [[place]-3] 1,200 mg PO DAILY 03/01/17 [History] Ranitidine HCl [Zantac 75] 150 mg PO DAILY 03/01/17 [History] Travoprost [Travatan Z] 1 drop EYEBOTH BEDTIME 03/01/17 [History] Aspirin [Adult Low Dose Aspirin EC] 162 mg PO BEDTIME #30 tablet. 03/02/17 [Rx ] Patient Handouts: Stroke Prevention, [id number], Transient Ischemic Attack, [id number], Aspirin, ASA oral tablets, Managing Your High Blood Pressure, Hypertension Referrals: Mehreen Go MD [Primary Care Provider] - 03/11/17 1:15 pm ( Please follow up with Dr. Go on Tuesday at 1315. ) - Discharge Summary/Plan Comment DC Time >30 min.: Yes (45 Mins) Discharge Summary/Plan Comment: Discharge to Home - General Info Date of Service: 03/02/17 Admission Dx/Problem (Free Text: TIA Subjective Update: Follow Up Functional Status: Reports: Pain Controlled, Tolerating Diet, Ambulating, Urinating. Denies: New Symptoms - Review of Systems General: Denies: Fever, Weakness, Fatigue, Malaise, Chills HEENT: Reports: No Symptoms Pulmonary: Denies: Shortness of Breath Cardiovascular: Denies: Chest Pain, Palpitations, Dyspnea on Exertion, Lightheadedness Gastrointestinal: Denies: Abdominal Pain, Nausea, Vomiting Genitourinary: Reports: No Symptoms Musculoskeletal: Reports: No Symptoms Skin: Reports: No Symptoms Neurological: Denies: Confusion, Difficulty Walking, Weakness, Gait Disturbance Psychiatric: Denies: Confusion, Mood Lability, Anxiety, Agitation, Hallucinations Systems Review Comment: No overnight or acute issues. She has no new complaints. She reports no neurologic deficits. - Patient Data Vitals - Most Recent: Last Vital Signs Temp 36.8 C 03/02/17 02:58 Pulse 69 03/02/17 02:58 Resp 17 03/02/17 02:58 BP 130/91 H 03/02/17 02:58 Pulse Ox 94 L 03/02/17 02:58 Weight - Most Recent: 58.967 kg I&O - Last 24 hours: Intake & Output 03/01/17 03/02/17 03/02/17 22:59 06:59 14:59 Intake Total 180 350 Output Total 150 950 Balance 30 -600 Lab Results - Last 24 hrs: Laboratory Results - last 24 hr 03/01/17 03/01/17 03/02/17 Range/Units 16:30 17:35 05:46 WBC 6.28 (3.98-10.04) K/mm3 RBC 3.91 L (3.98-5.22) M/mm3 Hgb 12.4 (11.2-15.7) gm/L Hct 37.2 (34.1-44.9) % MCV 95.1 H (79.4-94.8) fl MCH 31.7 (25.6-32.2) pg MCHC 33.3 (32.2-35.5) g/dl RDW Std Deviation 48.5 H (36.4-46.3) fL Plt Count 332 (182-369) K/mm3 MPV 10.7 (9.4-12.3) fl Neut % (Auto) 51.4 (34.0-71.1) % Lymph % (Auto) 28.7 (19.3-51.7) % [place] % (Auto) 15.0 H (4.7-12.5) % Eos % (Auto) 4.1 (0.7-5.8) Baso % (Auto) 0.5 (0.1-1.2) % Neut # (Auto) 3.23 (1.56-6.13) K/mm3 Lymph # (Auto) 1.80 (1.18-3.74) K/mm3 [place] # (Auto) 0.94 H (0.24-0.36) K/mm3 Eos # (Auto) 0.26 (0.04-0.36) K/mm3 Baso # (Auto) 0.03 (0.01-0.08) K/mm3 Sodium (136-145) mEq/L Potassium (3.5-5.1) mEq/L Chloride (98-107) mEq/L Carbon Dioxide (21-32) mEq/L Anion Gap (5-15) BUN (7-18) mg/dL Creatinine (0.55-1.02) mg/dL Est Cr Clr Drug Dosing mL/min Estimated GFR (MDRD) (>60) mL/min BUN/Creatinine Ratio (14-18) Glucose (83-115) mg/dL Calcium (8.5-10.1) mg/dL Magnesium (1.8-2.4) mg/dl Urine Color Light yellow (Yellow) Urine Appearance Clear (Clear) Urine pH 7.5 (5.0-8.0) Ur Specific [place] 1.020 (1.005-1.030) Urine Protein Negative (Negative) Urine Glucose (UA) Negative (Negative) Urine Ketones Negative (Negative) Urine Occult Blood Trace-intact H (Negative) Urine Nitrite Negative (Negative) Urine Bilirubin Negative (Negative) Urine Urobilinogen 0.2 (0.2-1.0) Ur Leukocyte Esterase Negative (Negative) Urine RBC 0-5 (0-5) /hpf Urine WBC 0-5 (0-5) /hpf Ur Epithelial Cells 0-5 (0-5) /hpf Urine Bacteria Rare (FEW) /hpf Urine Mucus Not seen (FEW) /hpf MRSA (PCR) Negative 03/02/17 Range/Units 05:46 WBC (3.98-10.04) K/mm3 RBC (3.98-5.22) M/mm3 Hgb (11.2-15.7) gm/L Hct (34.1-44.9) % MCV (79.4-94.8) fl MCH (25.6-32.2) pg MCHC (32.2-35.5) g/dl RDW Std Deviation (36.4-46.3) fL Plt Count (182-369) K/mm3 MPV (9.4-12.3) fl Neut % (Auto) (34.0-71.1) % Lymph % (Auto) (19.3-51.7) % [place] % (Auto) (4.7-12.5) % Eos % (Auto) (0.7-5.8) Baso % (Auto) (0.1-1.2) % Neut # (Auto) (1.56-6.13) K/mm3 Lymph # (Auto) (1.18-3.74) K/mm3 [place] # (Auto) (0.24-0.36) K/mm3 Eos # (Auto) (0.04-0.36) K/mm3 Baso # (Auto) (0.01-0.08) K/mm3 Sodium 138 (136-145) mEq/L Potassium 4.1 (3.5-5.1) mEq/L Chloride 103 (98-107) mEq/L Carbon Dioxide 27 (21-32) mEq/L Anion Gap 12.1 (5-15) BUN 19 H (7-18) mg/dL Creatinine 0.8 (0.55-1.02) mg/dL Est Cr Clr Drug Dosing 44.40 mL/min Estimated GFR (MDRD) > 60 (>60) mL/min BUN/Creatinine Ratio 23.8 H (14-18) Glucose 109 (83-115) mg/dL Calcium 8.7 (8.5-10.1) mg/dL Magnesium 2.0 (1.8-2.4) mg/dl Urine Color (Yellow) Urine Appearance (Clear) Urine pH (5.0-8.0) Ur Specific [place] (1.005-1.030) Urine Protein (Negative) Urine Glucose (UA) (Negative) Urine Ketones (Negative) Urine Occult Blood (Negative) Urine Nitrite (Negative) Urine Bilirubin (Negative) Urine Urobilinogen (0.2-1.0) Ur Leukocyte Esterase (Negative) Urine RBC (0-5) /hpf Urine WBC (0-5) /hpf Ur Epithelial Cells (0-5) /hpf Urine Bacteria (FEW) /hpf Urine Mucus (FEW) /hpf MRSA (PCR) Med Orders - Current: Current Medications Acetaminophen (Tylenol) 650 mg PO Q4H PRN PRN Reason: Pain (Mild 1-3)/fever Last Admin: 03/02/17 06:58 Dose: 650 mg Hydrocodone Bitart/Acetaminophen ([place] 325-5 Mg) 1 tab PO Q4H PRN PRN Reason: Pain (moderate 4-6) Albuterol (Proventil Hfa) 0 gm INH Q6H PRN PRN Reason: Shortness of Breath Albuterol/Ipratropium (Duoneb 3.0-0.5 Mg/3 Ml) 3 ml NEB Q4H PRN PRN Reason: Shortness Of Breath/wheezing Albuterol/Ipratropium (Duoneb 3.0-0.5 Mg/3 Ml) 3 ml INH Q6H [facility] Last Admin: 03/02/17 06:09 Dose: Not Given Aspirin (Aspirin) 81 mg PO BEDTIME [facility] Last Admin: 03/01/17 21:06 Dose: 81 mg Bisacodyl (Dulcolax) 5 mg PO DAILY PRN PRN Reason: Constipation Calcium Carbonate (Calcium Carbonate/Vitamin D 1500 Mg-200 Unit) 1 tab PO DAILY [facility] Docusate Sodium (Colace) 100 mg PO BID PRN PRN Reason: Constipation Famotidine (Pepcid) 20 mg PO DAILY [facility] Fish Oil (Fish Oil) 1 gm PO DAILY [facility] Flunisolide (Nasalide Nasal [place]) 0 ml NASBOTH BID PRN PRN Reason: Allergies Hydromorphone HCl (Dilaudid) 0.25 mg IVPUSH Q2H PRN PRN Reason: Pain (severe 7-10) Promethazine HCl 12.5 mg/ (Sodium Chloride) 50.5 mls @ 100 mls/hr IV Q6H PRN PRN Reason: Nausea/Vomiting Latanoprost (Xalatan 0.005% Ophth Soln) 0 ml EYEBOTH BEDTIME [facility] Last Admin: 03/01/17 21:06 Dose: 1 drop Levothyroxine Sodium (Synthroid) 88 mcg PO ACBREAKFAST [facility] Last Admin: 03/02/17 06:58 Dose: 88 mcg Lisinopril (Prinivil) 10 mg PO DAILY [facility] Loratadine (Claritin) 10 mg PO DAILY PRN PRN Reason: Allergies Lorazepam (Ativan) 0.25 mg IV Q6H PRN PRN Reason: Anxiety Magnesium Oxide (Magnesium Oxide) 400 mg PO BID [facility] Last Admin: 03/01/17 21:05 Dose: 400 mg Mometasone Furoate/Formoterol Fumar (Dulera 200-5 Mcg) 0 puff IH BID [facility] Last Admin: 03/01/17 20:27 Dose: 2 puff Montelukast Sodium (Singulair) 10 mg PO BEDTIME [facility] Last Admin: 03/01/17 21:05 Dose: 10 mg Multivitamins (Thera) 1 each PO DAILY [facility] Ondansetron HCl (Zofran) 4 mg IV Q6H PRN PRN Reason: Nausea/Vomiting Polyethylene Glycol (Miralax) 17 gm PO DAILY PRN PRN Reason: Constipation Saccharomyces Boulardii (Florastor) 250 mg PO DAILY [facility] Senna/Docusate Sodium (Senna Plus) 1 tab PO BID PRN PRN Reason: Constipation Sodium Chloride (Saline Flush) 10 ml FLUSH ASDIRECTED PRN PRN Reason: Keep Vein Open Last Admin: 03/01/17 08:45 Dose: 10 ml Temazepam (Restoril) 7.5 mg PO BEDTIME PRN PRN Reason: Sleep Discontinued Medications Aspirin (Aspirin) 324 mg PO ONETIME ONE Stop: 03/01/17 11:09 Last Admin: 03/01/17 11:20 Dose: 324 mg - Exam General: Reports: Alert, Oriented, Cooperative, No Acute Distress HEENT: Reports: Pupils Equal, Pupils Reactive, EOMI, Mucous Membr. Moist/[place] Neck: Reports: Supple, Trachea Midline, No Thyromegaly Lungs: Reports: Clear to Auscultation, Normal Respiratory Effort Cardiovascular: Reports: Regular Rate, Regular Rhythm GI/Abdominal Exam: Normal Bowel Sounds, Soft, Non-Tender, No Organomegaly, No Distention, No Abnormal Bruit, No Mass (Female) Exam: Deferred Rectal (Female) Exam: Deferred Back Exam: Reports: Normal Inspection, Decreased Range of Motion Extremities: Normal Inspection, Normal Range of Motion, Non-Tender, No Pedal Edema, Normal Capillary Refill Skin: Reports: Warm, Dry, Intact Neurological: Reports: No New Focal Deficit Psy/Mental Status: Reports: Alert, Normal Affect, Normal Mood *Q Meaningful Use (DIS) - VTE *Q VTE Criteria *Q: - Stroke *Q Stroke Criteria *Q: - AMI *Q AMI Criteria *Q:
[2017-03-02] MEDS: Magnesium Oxide 400 MG Tab PO SCH (08:11)
[2017-03-02] MEDS: Formoterol/Mometasone 200-5 MCG 8.8 GM Inhaler IH SCH (08:53)
[2017-03-02] MEDS ORDERED: Lisinopril 10 MG Tab PO SCH (09:00)
[2017-03-02] MEDS ORDERED: Multivitamins,Therapeutic Tab PO SCH (09:00)
[2017-03-02] MEDS ORDERED: Saccharomyces Boulardii (Probiotic) 250 MG Cap PO SCH (09:00)
[2017-03-02] MEDS ORDERED: Fish Oil/Omega-3 Fatty Acids 1 Gm Cap PO SCH (09:00)
[2017-03-02] MEDS ORDERED: Famotidine 20 MG Tab PO SCH (09:00)
[2017-03-02] MEDS ORDERED: Calcium Carbonate/Vitamin D3 1500 MG-200 Units Tab PO SCH (09:00)
[2017-03-02 12:52] VITALS: BP 116/92
== END 2017-03-02 14:40 | disposition home or self-care (01) | DRG 69 ==
LOC: JD.ED 08:23 → UNDOADMIN 12:05 → JD.MS 12:05
PROVIDERS: ADMIT Internal Medicine Cardiovascular Disease; ATTEND Internal Medicine Cardiovascular Disease
DX: G45.9 Transient cerebral ischemic attack, unspecified (principal); I10 Essential (primary) hypertension; J45.909 Unspecified asthma, uncomplicated; E78.5 Hyperlipidemia, unspecified; I65.29 Occlusion and stenosis of unspecified carotid artery; Z86.73 Personal history of transient ischemic attack (TIA), and cerebral infarction without residual deficits; H54.7 Unspecified visual loss; Z79.82 Long term (current) use of aspirin; Z79.899 Other long term (current) drug therapy
CPT/HCPCS: 36415; 70450; 80053; 84484; 85025; 85610; 85730; 93005; 99285; A9270; J7050; 80048; 81001; 83735; 87641; 92610-GN; 94640; 94640-76; 94664; 94760; 97116-GP; 97162-GP; 97165-GO; 97530-GO

== ENCOUNTER 2017-03-05 09:26 | Emergency (ER) | payer MEDICARE, OTHER ==
[2017-03-05] MEDS ORDERED: Sodium Chloride 0.9% 10 ML Syringe FLUSH PRN (10:07)
--- NOTE | 2017-03-05 11:29 | EDM.PDOC ---
ED HPI GENERAL MEDICAL PROBLEM - General Chief Complaint: Gastrointestinal Problem Stated Complaint: CONSTIPATION Time Seen by Provider: 03/05/17 09:57 Source of Information: Reports: Patient, RN Notes Reviewed - History of Present Illness INITIAL COMMENTS - FREE TEXT/NARRATIVE: 86-year-old female comes in with constipation problems. She did suffer a TIA about 6 days ago. SHe was admitted into the hospital briefly. Her neurologic symptoms have completely resolved. Order she has not had a bowel movement now for about 5 or 6 days. She does feel some bloating and that she "needs to go" but has been unable to pass any stool at all for the past 5 or 6 days. She has had some problems with constipation in the past but not this severe. No abdominal pain or cramping at this time. There's been no nausea or vomiting. She claims she has been eating okay and also drinking plenty of water. Right Hip Pain Score (Numeric/FACES): 2 - Related Data Allergies Allergy/AdvReac Type Severity Reaction Status Date / Time No Known Allergies Allergy Verified 03/01/17 08:38 Home Meds: Home Meds Budesonide/Formoterol [Symbicort 160-4.5 Mcg Inhaler] 2 puff IH BID 01/08/14 [ History] Lisinopril 10 mg PO DAILY #30 tablet 01/08/14 [Rx] Albuterol/Ipratropium [DuoNeb 3-0.5 MG/3 ML] 3 ml INH Q6H 07/24/14 [History] Montelukast Sodium [Singulair] 10 mg PO BEDTIME 07/24/14 [History] Multivitamin with Minerals [Multivitamins with Minerals] 1 tab PO DAILY [History] Levothyroxine [Synthroid] 88 mcg PO ACBREAKFAST 01/05/17 [History] Albuterol Sulfate [Proair Hfa] 1 puff INH Q6H PRN 03/01/17 [History] Calcium Carbonate/Vitamin D3 [Calcium 1,000 + D3 Caplet] 1 tab PO DAILY [History] Cetirizine [ZyrTEC] 10 mg PO DAILY PRN 03/01/17 [History] Fluticasone Propionate [Flonase] 1 spray INH BID PRN 03/01/17 [History] L.acidoph,Paracasei, B.lactis [Probiotic] 1 tab PO DAILY 03/01/17 [History] Magnesium Oxide [Magnesium] 500 mg PO BID 03/01/17 [History] Margie-3 Fatty Acids [Margie-3] 1,200 mg PO DAILY 03/01/17 [History] Ranitidine HCl [Zantac 75] 150 mg PO DAILY 03/01/17 [History] Travoprost [Travatan Z] 1 drop EYEBOTH BEDTIME 03/01/17 [History] Aspirin [Adult Low Dose Aspirin EC] 162 mg PO BEDTIME #30 tablet. 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 - Alcohol Use Days Per Week of Alcohol Use: 0 - Recreational Drug Use Recreational Drug Use: No - Living Situation & Occupation Living situation: Reports: Occupation: Retired ED ROS GENERAL - Review of Systems Review Of Systems: See Below Constitutional: Denies: Fever, Chills, Diaphoresis HEENT: Reports: No Symptoms Respiratory: Denies: Shortness of Breath, Pleuritic Chest Pain Cardiovascular: Denies: Chest Pain GI/Abdominal: Reports: Constipation. Denies: Abdominal Pain, Nausea, Vomiting Musculoskeletal: Denies: Back Pain Skin: Reports: No Symptoms Neurological: Denies: Numbness, Tingling, Trouble Speaking, Difficulty Walking, Weakness ED EXAM, GI/ABD - Physical Exam Exam: See Below General Appearance: Alert, No Apparent Distress Throat/Mouth: Normal Inspection, Normal Oropharynx Neck: Supple, Full Range of Motion Respiratory/Chest: No Respiratory Distress, Lungs Clear, Normal Breath Sounds Cardiovascular: Regular Rate, Rhythm GI/Abdominal Exam: Soft, Non-Tender, Distended (Mild) Rectal (Female) Exam: Normal Rectal Tone, Heme - Stool, Other (Rectum was not impacted with stool, almost completely empty at time of exam). No: Mass Extremities: Normal Inspection, Normal Range of Motion. No: Pedal Edema, Leg Pain Neurological: Alert, Oriented, No Motor/Sensory Deficits Skin Exam: Warm, Dry, Normal Color Course - Vital Signs Last Recorded V/S: Last Vital Signs Temp 97.9 F 03/05/17 09:43 Pulse 73 03/05/17 10:15 Resp 16 03/05/17 10:15 BP 136/57 L 03/05/17 10:15 Pulse Ox 97 03/05/17 10:15 - Orders/Labs/Meds Orders: Active Orders 24 hr Category Date Time Status Enema [RC] ASDIRECTED Care 03/05/17 11:27 Active Peripheral IV Care [RC] . DIRECTED Care 03/05/17 10:08 Inactive Abdomen 2V AP Flat Upright [CR] Stat Exams 03/05/17 10:20 Taken Peripheral IV Insertion Adult [OM.PC] Stat Oth 03/05/17 10:07 Ordered Meds: Medications Discontinued Medications Generic Name Dose Route Start Last Admin Trade Name Renea PRN Reason Stop Dose Admin Sodium Chloride 10 ml 03/05/17 10:07 Saline Flush FLUSH ASDIRECTED PRN Keep Vein Open - Re-Assessments/Exams Free Text/Narrative Re-Assessment/Exam: 03/05/17 12:02. I was going to order some labs but her daughter states she did have normal lab work drawn just 3 or 4 days ago. Therefore that was canceled. We did do a flat and upright of the abdomen. Show a fair amount of stool in the colon. As noted on the rectal exam rectum was almost completely empty. No blood , no mass palpable, no unusual tenderness. 03/05/17 12:04. Her nurse inform you very short time ago that she is unable to pass the tube more than about 45 inches. She then seems to meet "resistance and also patient discomfort. When she did withdraw the tube there was just a small amount of blood. Therefore we will try a fleets enema and see if that will work for her. I will need to find out when she has had a colonoscopy. Departure - Departure Time of Disposition: 12:25 Disposition: Home, Self-Care 01 Condition: Fair Clinical Impression: Constipation - Discharge Information Instructions: Constipation, Adult Referrals: Mehreen Go MD [Primary Care Provider] - Forms: ED Department Discharge Additional Instructions: Continue to drink plenty of water, high-fiber diet. Continue prunes or prune juice once or twice daily, stool softener once or twice daily, mag citrate today , drink half of the bottle this early afternoon and then the other half later today. Continue MiraLAX once or twice daily. Metamucil or other fiber supplement once or twice daily. Return to ED if symptoms worsening in any way, colonoscopy strongly recommended due to the difficulty passing the tube for enema, see Dr. Rodrigues early this next week, first appointment available, call Tuesday morning for appointment. - My Orders Last 24 Hours: My Active Orders 03/05/17 10:07 Peripheral IV Insertion Adult [OM.PC] Stat 03/05/17 10:08 Peripheral IV Care [RC] . DIRECTED 03/05/17 10:20 Abdomen 2V AP Flat Upright [CR] Stat 03/05/17 11:27 Enema [RC] ASDIRECTED - Assessment/Plan Last 24 Hours: My Active Orders 03/05/17 10:07 Peripheral IV Insertion Adult [OM.PC] Stat 03/05/17 10:08 Peripheral IV Care [RC] . DIRECTED 03/05/17 10:20 Abdomen 2V AP Flat Upright [CR] Stat 03/05/17 11:27 Enema [RC] ASDIRECTED
[2017-03-05 13:22] VITALS: BP 136/57
--- NOTE | 2017-03-07 07:54 | CR ---
Abdomen: Supine view of the abdomen was obtained as well as upright study. Comparison: No previous abdominal x-ray. Mild scoliosis is noted within the spine. Bowel gas pattern is felt to be within normal limits. No free air is seen. Calcifications are noted within the pelvis most likely due to phleboliths. Impression: 1. Incidental findings. Diagnostic code #2
== END 2017-03-05 13:05 | disposition home or self-care (01) ==
LOC: JD.ED 09:26
DX: K59.00 Constipation, unspecified (principal); I10 Essential (primary) hypertension; J45.909 Unspecified asthma, uncomplicated; K21.9 Gastro-esophageal reflux disease without esophagitis; E03.9 Hypothyroidism, unspecified; Z90.49 Acquired absence of other specified parts of digestive tract; Z86.73 Personal history of transient ischemic attack (TIA), and cerebral infarction without residual deficits; Z79.899 Other long term (current) drug therapy; Z79.82 Long term (current) use of aspirin; Z90.710 Acquired absence of both cervix and uterus
CPT/HCPCS: 74020; 74020-26; 99284

== ENCOUNTER 2017-07-09 19:08 | Emergency (ER) | payer MEDICARE, OTHER ==
[2017-07-09 19:29] VITALS: BP 164/73
--- NOTE | 2017-07-09 20:09 | EDM.PDOC ---
ED HPI GENERAL MEDICAL PROBLEM - General Chief Complaint: Genitourinary Problem Stated Complaint: POSS UTI Time Seen by Provider: 07/09/17 19:10 Source of Information: Reports: Patient, Family History Limitations: Reports: No Limitations - History of Present Illness INITIAL COMMENTS - FREE TEXT/NARRATIVE: This is an 87-year-old female. Her daughter brings her in this evening because she has been complaining of burning on urination for the last 2- 3 days. The daughter when she went to see her today noted that she does have a little bit of wheezing in her lungs as well mild cough. The patient herself states she has no ear pain no sore throat no runny nose but she does have a history of acute bronchitis and reactive airway disease. They did not give her a nebulizer treatment at home but came to the ER to be evaluated. When I asked whether they wanted a nebulizer treatment here they would prefer to do it at home but they wanted her urine checked out. She does have a history of repetitive urinary tract infections though the last one was about a year ago. No fevers been documented and no other acute symptoms. The patient does hold her urine because she is afraid his Ruddy hurt when she urinates O she also has some bladder spasms. The daughter also states that she's been slightly more confused since she's been having the symptoms which is not unusual when she has an infection. Lower Abdomen Pain Score (Numeric/FACES): 8 - Related Data Allergies Allergy/AdvReac Type Severity Reaction Status Date / Time No Known Allergies Allergy Verified 07/09/17 19:29 Home Meds: Home Meds Budesonide/Formoterol [Symbicort 160-4.5 Mcg Inhaler] 2 puff IH BID 01/08/14 [ History] Lisinopril 10 mg PO DAILY #30 tablet 01/08/14 [Rx] Albuterol/Ipratropium [DuoNeb 3-0.5 MG/3 ML] 3 ml INH Q6H 07/24/14 [History] Montelukast Sodium [Singulair] 10 mg PO BEDTIME 07/24/14 [History] Multivitamin with Minerals [Multivitamins with Minerals] 1 tab PO DAILY [History] Levothyroxine [Synthroid] 88 mcg PO ACBREAKFAST 01/05/17 [History] Albuterol Sulfate [Proair Hfa] 1 puff INH Q6H PRN 03/01/17 [History] Calcium Carbonate/Vitamin D3 [Calcium 1,000 + D3 Caplet] 1 tab PO DAILY [History] Cetirizine [ZyrTEC] 10 mg PO DAILY PRN 03/01/17 [History] Fluticasone Propionate [Flonase] 1 spray INH BID PRN 03/01/17 [History] L.acidoph,Paracasei, B.lactis [Probiotic] 1 tab PO DAILY 03/01/17 [History] Magnesium Oxide [Magnesium] 500 mg PO BID 03/01/17 [History] [place]-3 Fatty Acids [[place]-3] 1,200 mg PO DAILY 03/01/17 [History] Ranitidine HCl [Zantac 75] 150 mg PO DAILY 03/01/17 [History] Travoprost [Travatan Z] 1 drop EYEBOTH BEDTIME 03/01/17 [History] Aspirin [Adult Low Dose Aspirin EC] 162 mg PO BEDTIME #30 tablet. 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: Musculoskeletal History: Reports: Arthritis, Fracture Other Musculoskeletal History: T12 fx feb 2017 Neurological History: Reports: CVA, TIA Endocrine/Metabolic History: Reports: Hypothyroidism - Past Surgical History GI Surgical History: Reports: Appendectomy Female Surgical History: Reports: Hysterectomy Dermatological Surgical History: Reports: None Social & Family History - Family History Family Medical History: Noncontributory - Tobacco Use Smoking Status *Q: Never Smoker Second Hand Smoke Exposure: No - Caffeine Use Caffeine Use: Reports: Tea Caffeine Use Comment: one cup a day, occasional tea. - Alcohol Use Days Per Week of Alcohol Use: 0 - Recreational Drug Use Recreational Drug Use: No - Living Situation & Occupation Living situation: Reports: Occupation: Retired ED ROS GENERAL - Review of Systems Review Of Systems: See Below Constitutional: Denies: Fever, Chills HEENT: Denies: Rhinitis, Throat Swelling Respiratory: Reports: Wheezing, Cough. Denies: Shortness of Breath Cardiovascular: Denies: Chest Pain Endocrine: Reports: No Symptoms GI/Abdominal: Reports: Abdominal Pain. Denies: Diarrhea, Nausea, Vomiting : Reports: Dysuria Musculoskeletal: Reports: No Symptoms Skin: Reports: No Symptoms Neurological: Reports: Confusion Psychiatric: Reports: No Symptoms Hematologic/Lymphatic: Reports: No Symptoms ED EXAM, RENAL/ - Physical Exam Exam: See Below Exam Limited By: No Limitations General Appearance: Alert, WD/WN, No Apparent Distress Eye Exam: Bilateral Eye: Normal Inspection Ears: Normal External Exam, Normal Canal, Normal TMs Nose: Normal Inspection. No: Clear Rhinorrhea Throat/Mouth: Normal Inspection, Normal Lips, Normal Voice, No Airway Compromise Head: Normocephalic Neck: Supple Respiratory/Chest: No Respiratory Distress, No Accessory Muscle Use, Wheezing, Other (She has a faint expiratory wheeze in the bases but there is no prolonged expiratory phase) Cardiovascular: Regular Rate, Rhythm, No Murmur GI/Abdominal: Soft, Non-Tender, Other (Patient denies tenderness of her abdomen even over the bladder is not tender and she tells me just hurts when she urinates but there is really no pain otherwise) Back Exam: Full Range of Motion Extremities: Normal Inspection, Normal Range of Motion Neurological: Alert, Oriented, Other (Patient is very conversational) Psychiatric: Normal Affect, Normal Mood Skin Exam: Warm, Dry Course - Vital Signs Last Recorded V/S: Last Vital Signs Temp 97.2 F 07/09/17 19:25 Pulse 105 H 07/09/17 19:25 Resp 18 07/09/17 19:25 BP 164/73 H 07/09/17 19:25 Pulse Ox 93 L 07/09/17 19:25 - Orders/Labs/Meds Orders: Active Orders 24 hr Category Date Time Status cefTRIAXone [Rocephin] 1 gm Med 07/09/17 21:15 Active Lidocaine 1% [Xylocaine 1%] 2.1 ml IM Q24H Medication Orders Ceftriaxone Sodium 1 gm/ (Lidocaine HCl 2.1 ml) 0 gm IM Q24H [facility] Last Admin: 07/09/17 21:12 Dose: 1 inj Labs: Laboratory Tests 07/09/17 07/09/17 Range/Units 19:40 20:20 WBC 10.31 H (3.98-10.04) K/mm3 RBC 3.96 L (3.98-5.22) M/mm3 Hgb 12.2 (11.2-15.7) gm/L Hct 37.5 (34.1-44.9) % MCV 94.7 (79.4-94.8) fl MCH 30.8 (25.6-32.2) pg MCHC 32.5 (32.2-35.5) g/dl RDW Std Deviation 46.6 H (36.4-46.3) fL Plt Count 341 (182-369) K/mm3 MPV 9.9 (9.4-12.3) fl Neut % (Auto) 60.8 (34.0-71.1) % Lymph % (Auto) 22.3 (19.3-51.7) % Mck[place] % (Auto) 12.1 (4.7-12.5) % Eos % (Auto) 4.1 (0.7-5.8) Baso % (Auto) 0.5 (0.1-1.2) % Neut # (Auto) 6.27 H (1.56-6.13) K/mm3 Lymph # (Auto) 2.30 (1.18-3.74) K/mm3 [place] # (Auto) 1.25 H (0.24-0.36) K/mm3 Eos # (Auto) 0.42 H (0.04-0.36) K/mm3 Baso # (Auto) 0.05 (0.01-0.08) K/mm3 Urine Color Yellow (Yellow) Urine Appearance Cloudy H (Clear) Urine pH 6.0 (5.0-8.0) Ur Specific [place] 1.025 (1.005-1.030) Urine Protein 1+ H (Negative) Urine Glucose (UA) Negative (Negative) Urine Ketones Negative (Negative) Urine Occult Blood 2+ H (Negative) Urine Nitrite Positive H (Negative) Urine Bilirubin Negative (Negative) Urine Urobilinogen 0.2 (0.2-1.0) Ur Leukocyte Esterase 3+ H (Negative) Urine RBC 5-10 H (0-5) /hpf Urine WBC Too numerous to cnt H (0-5) /hpf Ur Epithelial Cells Not seen (0-5) /hpf Urine Bacteria Many H (FEW) /hpf Urine Mucus Not seen (FEW) /hpf Meds: Medications Generic Name Dose Route Start Last Admin Trade Name Renea PRN Reason Stop Dose Admin Ceftriaxone Sodium 1 gm/ 0 gm 07/09/17 21:15 07/09/17 21:12 Lidocaine HCl 2.1 ml IM 1 inj Q24H CLEVE Administration - Re-Assessments/Exams Free Text/Narrative Re-Assessment/Exam: 07/09/17 21:22 I spoke to the patient and the daughter regarding the positive urine drug screen. We will give her a Rocephin shot which should take care of her lungs as well as her bladder, to put her on some Pyridium and Bactrim which will also help her lungs and her bladder. She is to follow-up with her family doctor later this week for recheck. Departure - Departure Time of Disposition: 21:22 Disposition: Home, Self-Care 01 Condition: Good Clinical Impression: Urinary tract infection Qualifiers: Urinary tract infection type: acute cystitis Hematuria presence: without hematuria Qualified Code(s): N30.00 - Acute cystitis without hematuria Acute bronchitis Qualifiers: Bronchitis organism: unspecified organism Qualified Code(s): J20.9 - Acute bronchitis, unspecified - Discharge Information Prescriptions: Phenazopyridine [Pyridium] 200 mg PO TID #12 tab Sulfamethoxazole/Trimethoprim [Bactrim Ds Tablet] 1 each PO BID #14 tablet Referrals: Mehreen Go MD [Primary Care Provider] - Forms: ED Department Discharge Additional Instructions: Drink lots of fluids to flush out the bladder, remember the Pyridium will make her urine turn orange so do not get scared when you urinate orange, be sure to take the Pyridium after meals 3 times a day, start the Bactrim antibiotic Tuesday evening, follow up with her family doctor this week for recheck, return to the ER if she worsens - My Orders Last 24 Hours: My Active Orders 07/09/17 21:15 cefTRIAXone [Rocephin] 1 gm Lidocaine 1% [Xylocaine 1%] 2.1 ml IM Q24H - Assessment/Plan Last 24 Hours: My Active Orders 07/09/17 21:15 cefTRIAXone [Rocephin] 1 gm Lidocaine 1% [Xylocaine 1%] 2.1 ml IM Q24H
[2017-07-09] MEDS ORDERED: cefTRIAXone 1 GM, Lidocaine 1% 2.1 ML IM SCH ×2 (21:15)
== END 2017-07-09 21:30 | disposition home or self-care (01) ==
LOC: JD.ED 19:08
DX: N30.00 Acute cystitis without hematuria (principal); J20.9 Acute bronchitis, unspecified; I10 Essential (primary) hypertension; J45.909 Unspecified asthma, uncomplicated; K21.9 Gastro-esophageal reflux disease without esophagitis; E03.9 Hypothyroidism, unspecified; Z79.82 Long term (current) use of aspirin; Z79.899 Other long term (current) drug therapy
CPT/HCPCS: 36415; 81001; 85025; 96372; 99283; J0696